=== PATIENT | female | born 1965 | race Caucasian/White ===

== ENCOUNTER 2024-03-23 13:02 | Outpatient (CLI) | payer MEDICARE, SELFPAY | END 2024-03-23 13:03 | disposition home or self-care (01) | LOC: LAB 13:04 | DX: E78.5 Hyperlipidemia, unspecified (principal); M25.511 Pain in right shoulder; M79.9 Soft tissue disorder, unspecified | CPT/HCPCS: 73030; 80053; 80061; 85025 ==

== ENCOUNTER → 2024-03-30 11:31 | Outpatient (BNVA) | payer MEDICARE, SELFPAY | PROVIDERS: Visit Provider Specialist | DX: M77.8 Other enthesopathies, not elsewhere classified (principal); M75.31 Calcific tendinitis of right shoulder | CPT/HCPCS: 20610; 73030; 99204 ==

== ENCOUNTER 2024-04-06 13:10 | Outpatient (CLI) | payer MEDICARE, SELFPAY ==
--- NOTE | 2024-04-06 13:30 | MM_ITS ---
WS: [id number] BILATERAL 3D TOMOSYNTHESIS DIGITAL SCREENING MAMMOGRAPHY WITH CAD CLINICAL INFORMATION: screening for breast cancer HISTORY: Screening mammogram. No current complaints. COMPARISON: None. TECHNIQUE: Bilateral CC and MLO views. FINDINGS: Scattered fibroglandular densities bilaterally. No suspicious focal mass, asymmetry, calcifications, or architectural distortion. No evidence of malignancy. A few incidental punctate calcifications. MM/MM scr tomosynthesis [id number] IMPRESSION: DENSITY: There are scattered areas of fibroglandular density. BI-RADS: 2 - Benign. FOLLOW UP: 1 Year Follow-up Recommend return to annual screening mammography.
--- NOTE | 2024-04-06 14:00 | XR_ITS ---
WS: [id number] DEXA (DUAL ENERGY X-RAY ABSORPTIOMETRY) Bone mineral density was performed using a Genome machine. HISTORY: screening COMPARISON: None available. Lumbar spine BMD (L1-L4): 1.001 g/cm2 T score: -1.5 Z score: -0.7 Total hip BMD: Left: 0.810 g/cm2. T score: -1.6 Z score: -1.0 Right: 0.804 g/cm2. T score: -1.6 Z score: -1.0 10 year probability of a major osteoporotic fracture is 16.0%. XR/XR DEXA axial skeleton* [id number] IMPRESSION: OSTEOPENIA based upon the WHO classification for females.
== END 2024-04-06 13:11 | disposition home or self-care (01) ==
LOC: RAD 13:10
DX: Z12.31 Encounter for screening mammogram for malignant neoplasm of breast (principal); Z13.820 Encounter for screening for osteoporosis; M85.80 Other specified disorders of bone density and structure, unspecified site; E34.9 Endocrine disorder, unspecified; M06.9 Rheumatoid arthritis, unspecified; R92.323 Mammographic fibroglandular density, bilateral breasts; R92.1 Mammographic calcification found on diagnostic imaging of breast
CPT/HCPCS: 77063; 77067; 77080

== ENCOUNTER 2024-04-29 13:31 | Outpatient (CLI) | payer MEDICARE, SELFPAY ==
[2024-04-29 14:08] LABS: Erythrocyte Sedimentation Rate 6 mm/hr (0-15)
[2024-05-02 11:19] LABS: COMPLEMENT COMPONENT C3C 116 mg/dL (83-193); COMPLEMENT COMPONENT C4C 18 mg/dL (15-57)
[2024-05-02 12:04] LABS: Cyclic Citrullinated Peptide <16 UNITS
[2024-05-02 14:38] LABS: THYROID PEROXIDASE ANTIBODIES <1 IU/mL (<9)
[2024-05-02 15:00] LABS: COMPLEMENT, TOTAL (CH50) 55 U/mL (31-60)
[2024-05-02 15:15] LABS: ANA SCREEN, IFA NEGATIVE (NEGATIVE)
[2024-05-02 17:15] LABS: CENTROMERE B ANTIBODY <1.0 NEG AI (<1.0 NEG); JO-1 ANTIBODY <1.0 NEG AI (<1.0 NEG); RNP ANTIBODY <1.0 NEG AI (<1.0 NEG); SCL-70 ANTIBODY <1.0 NEG AI (<1.0 NEG); SJOGREN'S ANTIBODY (SS-A) <1.0 NEG AI (<1.0 NEG); SM ANTIBODY <1.0 NEG AI (<1.0 NEG); SS-B <1.0 NEG AI (<1.0 NEG)
== END 2024-04-29 13:32 | disposition home or self-care (01) ==
LOC: LAB 13:33
DX: M06.9 Rheumatoid arthritis, unspecified (principal)
CPT/HCPCS: 36415; 85651; 86140; 86160; 86162; 86200; 86235; 86255; 86376

== ENCOUNTER → 2024-05-31 08:43 | Outpatient (BNVA) | payer MEDICARE, SELFPAY | PROVIDERS: Visit Provider Internal Medicine Rheumatology | DX: Z79.899 Other long term (current) drug therapy (principal); M06.041 Rheumatoid arthritis without rheumatoid factor, right hand; M06.042 Rheumatoid arthritis without rheumatoid factor, left hand; Z71.85 Encounter for immunization safety counseling | CPT/HCPCS: 99214 ==

== ENCOUNTER → 2024-08-17 10:05 | Outpatient (BNVA) | payer MEDICARE, SELFPAY | PROVIDERS: PCP Family Medicine; Visit Provider Specialist | DX: M77.8 Other enthesopathies, not elsewhere classified (principal); S42.35 Comminuted fracture of shaft of humerus; M25.511 Pain in right shoulder; G89.29 Other chronic pain; X58.XXXS Exposure to other specified factors, sequela | CPT/HCPCS: 73030; 99214 ==

== ENCOUNTER 2024-08-29 07:06 | Outpatient (CLI) | payer MEDICARE, SELFPAY ==
--- NOTE | 2024-08-29 07:15 | MR_ITS ---
WS: [id number] MRI RIGHT SHOULDER HISTORY: right shoulder pain COMPARISON: Radiograph 08/17/2024 TECHNIQUE: Multiplanar sequences of the shoulder joint are submitted. Mild AC joint arthropathy. Small amount of fluid in the subacromial and subdeltoid bursa. Biceps tendon in normal position. No os acromion. Subchondral cystic changes in the greater tuberosity. Slightly high riding humeral head. Moderate size insertion site tear of the supraspinatus with interstitial extension of the tear. Mild tendinopathy in the distal subscapularis tendon with narrowing of the coracohumeral interval. Infraspinatus and teres minor are intact. No muscle atrophy. No evidence for adhesive capsulitis. No significant joint effusion. Calcific tendinitis noted on the radiograph versus chondrocalcinosis is not identified by CT. No labral tear. MR/MR shoulder RT wo con* [id number] IMPRESSION: 1. Moderate-sized insertion site of the supraspinatus with interstitial extens ion. No retraction of the tendon or muscle atrophy. 2. Mild AC joint arthropathy. 3. Subchondral cystic changes in the greater tuberosity. 4. Mild distal subscapularis tendinopathy with narrowing of the coracohumeral interval.
--- NOTE | 2024-08-29 08:45 | NM_ITS ---
WS: [email or web address] THREE-PHASE BONE SCAN HISTORY: left shoulder pain COMPARISON: Radiograph 08/17/2024 Patient is is injected with 27.5 mCi Tc99m HDP intravenously. Immediate angiographic phase imaging is performed over the area of concern. Static blood pool imaging also performed. Two-hour whole-body scintigrams performed in anterior and posterior projections. Additional large field of view imaging sub mitted as necessary. Normal angiographic and blood pool phase imaging of the LEFT shoulder. Patient is status post ORIF LEFT humeral fracture involving the proximal third. Incomplete union along the oblique fracture site demonstrates moderate increased uptake. There is also some milder uptake at the tip of the distal plate. Mild bilateral degenerative changes at the shoulder joints. No rib or spine abnormality. Osteoarthritis at the ankles and feet and knees. Normal soft tissue and renal uptake. NM/NM bone 3 phase [id number] IMPRESSION: 1. Focal moderate uptake proximal LEFT humerus at the site of nonunion. Radiog raphically there is no callus developing along the fracture. 2. There is additional more mild uptake involving the distal most LEFT humeral plate. 3. Osteoarthritis at the ankles, feet, knees and shoulders.
== END 2024-08-29 07:07 | disposition home or self-care (01) ==
LOC: RAD 07:08
PROVIDERS: PCP Family Medicine; Visit Provider Specialist
DX: S42.302K Unspecified fracture of shaft of humerus, left arm, subsequent encounter for fracture with nonunion (principal); M19.012 Primary osteoarthritis, left shoulder; M19.011 Primary osteoarthritis, right shoulder; M19.072 Primary osteoarthritis, left ankle and foot; Z98.890 Other specified postprocedural states; M19.071 Primary osteoarthritis, right ankle and foot; M17.0 Bilateral primary osteoarthritis of knee; R93.6 Abnormal findings on diagnostic imaging of limbs; M75.101 Unspecified rotator cuff tear or rupture of right shoulder, not specified as traumatic; X58.XXXD Exposure to other specified factors, subsequent encounter
CPT/HCPCS: 73221; 78315; A9561

== ENCOUNTER → 2024-09-05 13:21 | Outpatient (BNVA) | payer MEDICARE, SELFPAY | PROVIDERS: PCP Family Medicine; Visit Provider Internal Medicine Rheumatology | DX: S42.35 Comminuted fracture of shaft of humerus (principal); M25.511 Pain in right shoulder; M25.512 Pain in left shoulder; G89.29 Other chronic pain; M06.041 Rheumatoid arthritis without rheumatoid factor, right hand; M06.042 Rheumatoid arthritis without rheumatoid factor, left hand; Z71.85 Encounter for immunization safety counseling; Z79.899 Other long term (current) drug therapy; X58.XXXS Exposure to other specified factors, sequela | CPT/HCPCS: 36415; 72040; 72100; 80076; 82565; 85025; 85651; 86140; 99214 ==

== ENCOUNTER 2024-09-14 07:48 | Outpatient (CLI) | payer MEDICARE, SELFPAY ==
--- NOTE | 2024-09-14 07:54 | MR_ITS ---
WS: [email or web address] MRI CERVICAL SPINE NONCONTRAST HISTORY: CERVICALGIA COMPARISON: Cervical spine 09/05/2024 Technique: Multiplanar, multisequence noncontrast imaging of the cervical spine. Straightening of the normal cervical lordosis with slight reversal at C3-4. Mild RIGHT curvature cervical spine. Hypertrophic osteophytes and disc space narrowing throughout the cervical spine, most significant at C3-C6. Signal within the cervical cord is normal. Visualized posterior fossa is unremarkable. Craniocervical junction, C1 and C2 relationship, odontoid process and soft tissues are normal. C2-C3: Mild facet arthritis. C3-C4: Annular disc bulging with a small central disc protrusion. Mild osteophytic ridging and facet arthritis. Mild central and foraminal stenosis. C4-C5: Diffuse annular disc bulging with osteophytic ridging. Facet joint arthritis. Very mild central stenosis. C5-C6: Mild annular disc bulge with a central disc protrusion, osteophytic ridging and facet arthritis. Mild central and foraminal stenosis. C6-C7: Mild annular disc bulging. No stenosis. C7-T1: Normal. Paraspinal soft tissue are normal. T2 hemangioma. MR/MR cervical spin wo con* [id number] IMPRESSION: 1. No high-grade central or foraminal stenosis. 2. Degenerative disc disease and hypertrophic vertebral body osteophytes. 3. Slight reversal of the normal cervical lordosis at C3-4. 4. C3-4: Mild central and foraminal stenosis. 5. Mild central stenosis at C4-5. 6. Mild central foraminal stenosis at C5-6.
--- NOTE | 2024-09-14 08:00 | CTR_ITS ---
PROCEDURE INFORMATION: Exam: CT Abdomen And Pelvis Without Contrast Exam date and time: 09/14/2024 8:12 AM Age: 59 years old Clinical indication: Condition or disease; Other: Adrenal tumor; Prior surgery; Surgery date: 6+ months; Surgery type: Partial hyst, gb, gastric sleeve; Additional info: F/u adrenal tumors TECHNIQUE: Imaging protocol: Computed tomography of the abdomen and pelvis without contrast. Radiation optimization: All CT scans at this facility use at least one of these dose optimization techniques: automated exposure control; mA and/or kV adjustment per patient size (includes targeted exams where dose is matched to clinical indication); or iterative reconstruction. COMPARISON: CR XR lumbar spine 2-3V* [id number] 09/05/2024 2:42 PM RADIATION DOSE METRICS: Total DLP (mGy-cm): 570.57 FINDINGS: Lungs: Visualized lung bases are clear. Liver: Normal appearance of the liver. Gallbladder and biliary ducts: The patient is status post cholecystectomy. Bile duct is prominent measuring approximately 1.1 cm in diameter. No CT apparent ductal stone. Pancreas: Normal appearance of the pancreas. No ductal dilation. Spleen: Normal appearance of the spleen. Adrenal glands: Bilateral adrenal prominence with multiple nodular areas. The largest is within the left adrenal inferiorly measuring approximately 2.2 cm in size. All the nodules low density measuring approximately 15 Hounsfield units or less suggestive but not definitive for incidental adenomas. Kidneys and ureters: There is a small exophytic lesion on the left kidney measuring approximately 0.8 cm without simple fluid density to suggest a cyst. This is indeterminate on this noncontrast exam. Kidneys otherwise are unremarkable. Stomach and bowel: Postsurgical changes to the stomach. Normal caliber small and large without obstruction. Mild colonic stool. Appendix: The appendix is identified and normal in appearance. No evidence of appendicitis. Intraperitoneal space: Unremarkable. No free air. No significant fluid collection. Vasculature: There is mild calcific atherosclerotic disease of the abdominal aorta. No evidence of an aneurysm. Pelvic calcifications, likely representing incidental phleboliths. Lymph nodes: Unremarkable. No enlarged lymph nodes. Urinary bladder: The bladder is mostly decompressed and not well evaluated. Reproductive: Patient is status post hysterectomy. Bones/joints: Mild scattered degenerative changes of the visualized spine. No aggressive osseous lesion or fracture is seen. Soft tissues: The visualized superficial soft tissues have a normal appearance. CT/CT abdomen pelvis wo con [id number] IMPRESSION: 1. Bilateral adrenal nodularity. Largest nodule in the left adrenal gland measuring 2.2 cm with indeterminate Hounsfield unit measurement of approximately 15 on noncontrast imaging. Finding suggestive of adenomas although indeterminate. Recommend nonemergent adrenal CT or MRI for more definitive evaluation. 2. There is also an indeterminate sub cm exophytic nodule on the left kidney which is indeterminate. This can also be further evaluated on above-mentioned adrenal imaging.
== END 2024-09-14 07:49 | disposition home or self-care (01) ==
LOC: RAD 07:51
PROVIDERS: PCP Family Medicine; Visit Provider Family Medicine
DX: D49.7 Neoplasm of unspecified behavior of endocrine glands and other parts of nervous system (principal); M48.02 Spinal stenosis, cervical region; M25.78 Osteophyte, vertebrae; M47.892 Other spondylosis, cervical region; M50.31 Other cervical disc degeneration, high cervical region; M50.21 Other cervical disc displacement, high cervical region; M50.321 Other cervical disc degeneration at C4-C5 level; M50.322 Other cervical disc degeneration at C5-C6 level; M50.222 Other cervical disc displacement at C5-C6 level; M50.323 Other cervical disc degeneration at C6-C7 level; D18.09 Hemangioma of other sites; E27.8 Other specified disorders of adrenal gland; N28.89 Other specified disorders of kidney and ureter; Z90.49 Acquired absence of other specified parts of digestive tract; Z98.890 Other specified postprocedural states; R93.89 Abnormal findings on diagnostic imaging of other specified body structures; I70.0 Atherosclerosis of aorta; M47.9 Spondylosis, unspecified
CPT/HCPCS: 72141; 74176

== ENCOUNTER 2024-09-19 16:01 | Outpatient (CLI) | payer MEDICARE, SELFPAY ==
--- NOTE | 2024-09-19 16:30 | US_ITS ---
WS: [email or web address] RENAL ULTRASOUND HISTORY: Left kidney exophytic lesion on CT COMPARISON: None available. TECHNIQUE: 2-D and color Doppler imaging of the kidney submitted. Right kidney: 9.9 cm x 4.8 cm x 4.5 cm. Cortex: 1.0 cm Normal echogenicity with no hydronephrosis or mass. Left kidney: 9.8 cm x 4.4 cm x 4.1 cm. Cortex: 1.2 cm Normal echogenicity with no hydronephrosis or mass. Aorta: Normal. Urinary Bladder: Nondistended. US/US renal BI* [id number] IMPRESSION: 1. Normal renal ultrasound. No hydronephrosis or mass. Recently described exop hytic mass from the LEFT kidney is not identified by ultrasound due to its smal l size. Consider renal mass CT or MRI protocol with and without contrast. 2. No hydronephrosis.
== END 2024-09-19 16:02 | disposition home or self-care (01) ==
PROVIDERS: PCP Family Medicine; Visit Provider Family Medicine
DX: N28.1 Cyst of kidney, acquired (principal)
CPT/HCPCS: 76770

== ENCOUNTER 2024-10-19 09:49 | Outpatient (CLI) | payer MEDICARE, SELFPAY ==
--- NOTE | 2024-10-19 09:55 | CT_ITS ---
WS: [id number] CT LEFT HUMERUS, NONCONTRAST HISTORY: UNSPECIFIED FX OF SHAFT OF HUMERUS Technique: All CT scans at [facility] use at least one of these dose optimization techniques: automated exposure control; mA and/or kV adjustment per patient size (includes targeted exams where dose is matched to clinical indication); or iterative reconstruction. DLP: 716.13 mGy.cm COMPARISON: Radiograph 10/19/2024 Long plate and screw fixation across the proximal humeral fracture. Nonunion involving portions of the fracture. Mild separation of nonunion by 3.3 mm. No lucency is identified surrounding the screws. No displacement of the plate. Visualized soft tissues and additional osseous structures are normal. CT/CT humerus LT wo con* [id number] IMPRESSION: 1. Status post plate and screw fixation of a proximal LEFT humeral fracture wi th partial nonunion. 2. No lucency surrounding the screws or displacement.
== END 2024-10-19 09:50 | disposition home or self-care (01) ==
LOC: RAD 09:51
PROVIDERS: PCP Family Medicine; Visit Provider Orthopaedic Surgery
DX: S42.302K Unspecified fracture of shaft of humerus, left arm, subsequent encounter for fracture with nonunion (principal); X58.XXXD Exposure to other specified factors, subsequent encounter; M96.89 Other intraoperative and postprocedural complications and disorders of the musculoskeletal system
CPT/HCPCS: 73200

== ENCOUNTER → 2024-12-26 13:45 | Outpatient (BNVA) | payer MEDICARE, SELFPAY | PROVIDERS: PCP Family Medicine; Visit Provider Internal Medicine Rheumatology | DX: S42.35 Comminuted fracture of shaft of humerus (principal); M25.511 Pain in right shoulder; M25.512 Pain in left shoulder; G89.29 Other chronic pain; M06.041 Rheumatoid arthritis without rheumatoid factor, right hand; M06.042 Rheumatoid arthritis without rheumatoid factor, left hand; Z79.899 Other long term (current) drug therapy; Z71.85 Encounter for immunization safety counseling; R06.02 Shortness of breath; M06.9 Rheumatoid arthritis, unspecified | CPT/HCPCS: 36415; 80076; 82565; 83880; 85025; 85651; 86140; 86480; 86704; 86803; 87340; 99214 ==

== ENCOUNTER 2025-02-08 17:43 | Inpatient (IN) | payer MEDICARE, SELFPAY ==
--- OUTSIDE RECORDS SUMMARY | 2024-03-15 08:30 | XMS_ITS ---
Author Organization [facility] Address [address] [facility] [address] [place] [address] Care Team Providers Care Press Operator Printing Name Role Phone Amos Callahan Primary Care Provider Sudhakar Parr [phone] REASON FOR VISIT 4 month f/u smoking cessation Medications Medication SIG (Take, Route, Frequency, Duration) Notes Start Date End Date Status traMADol HCl 50 MG Tablet TAKE 1 TABLET BY MOUTH EVERY 8 HOURS NEEDED FOR 7 DAYS; Duration: 7 03/08/2024 Active traZODone HCl 150 MG Tablet Oral; Duration: 30 Days Not-Taking valACYclovir HCl 500 MG Tablet Take 1 tablet by mouth once daily; Duration: 90 Active Pantoprazole Sodium 40 MG Tablet Delayed Release 1 tablet Orally Once a day Not-Taking Albuterol Sulfate HFA 108 (90 Base) MCG/ACT Aerosol Solution 2 puff as needed Inhalation every 4 to 6 hours as needed for shortness of breath 12/25/2023 Active predniSONE 5 MG Tablet 1 tablet Oral Once a day; Duration: 30 days Active Promethazine-DM 6.25-15 MG/5ML Syrup 5 ml as needed Orally every 8 hours as needed for cough 12/25/2023 Not-Taking Omeprazole 20 MG Capsule Delayed Release 1 capsule 30 minutes before morning meal Oral Once a day; Duration: 90 days Patient new to provider controlled substance should come to us only Active predniSONE 50 MG Tablet 1 tablet in the morning Orally Once a day; Duration: 5 days 12/25/2023 Active Sertraline HCl 100 MG Tablet TAKE 1 TABLET BY MOUTH ONCE DAILY Orally Once a day; Duration: 90 days Patient new to provider controlled substance should come to us only Active Gabapentin 300 MG Capsule 1 capsule Oral three times a day; Duration: 90 days Active Methotrexate Sodium 2.5 MG Tablet 7 tablets Oral once week.; Duration: 7 days Active Diflucan 150 MG Tablet 1 tablet now and then 1 tablet in 48 hours Orally once a day 01/06/2024 Not-Taking Folic Acid 1 MG Tablet 1 tablet Orally Once a day; Duration: 90 days Active clonazePAM 1 MG Tablet Take 1 tablet by mouth twice daily as needed; Duration: 30 03/03/2024 Active Alendronate Sodium 70 MG Tablet 1 tablet 30 minutes before the first food, beverage or medicine of the day with plain water Orally once a week.; Duration: 84 days Active Atorvastatin Calcium 40 MG Tablet 1 tablet Oral Once a day; Duration: 90 days Active Augmentin 875-125 MG Tablet 1 tablet by mouth twice a day; Duration: 10 day(s) 12/25/2023 Not-Taking Encounters Encounter Location Date Provider Diagnosis [facility] [address] [facility] [address] [place], [place] [id number] 03/15/2024 Sudhakar Fair Plan Of Treatment No Information Progress Notes * Elaine RINALDIDOB:1965 (59 yo F)Acc No.[id number]:03/15/2024 UNLOCKED PROGRESS NOTE Progress Notes Patient: Elaine Boland Provider: CARLOS Zavaleta :1965 A ge:58 Y S ex:Female Date:03/15/2024 Address:[address] [place] [address], [id number] Pcp:Amos Callahan Subjective: * Chief Complaints: * 4 month f/u smoking cessation * Medications: T akingAlbuterol Sulfate HFA 108 (90 Base) MCG/ACT Aerosol Solution 2 puff as needed Inhalation every 4 to 6 hours as needed for shortness of breath Alendronate Sodium 70 MG Tablet 1 tablet 30 minutes before the first food, beverage or medicine of the day with plain water Orally once a week. Atorvastatin Calcium 40 MG Tablet 1 tablet Oral Once a day clonazePAM 1 MG Tablet Take 1 tablet by mouth twice daily as needed Folic Acid 1 MG Tablet 1 tablet Orally Once a day Gabapentin 300 MG Capsule 1 capsule Oral three times a day Methotrexate Sodium 2.5 MG Tablet 7 tablets Oral once week. Omeprazole 20 MG Capsule Delayed Release 1 capsule 30 minutes before morning meal Oral Once a day , Notes to Pharmacist: Patient new to provider controlled substance should come to us onlypredniSONE 50 MG Tablet 1 tablet in the morning Orally Once a day predniSONE 5 MG Tablet 1 tablet Oral Once a day Sertraline HCl 100 MG Tablet TAKE 1 TABLET BY MOUTH ONCE DAILY Orally Once a day , Notes to Pharmacist: Patient new to provider controlled substance should come to us onlytraMADol HCl 50 MG Tablet TAKE 1 TABLET BY MOUTH EVERY 8 HOURS NEEDED FOR 7 DAYS valACYclovir HCl 500 MG Tablet Take 1 tablet by mouth once daily Taking Albuterol Sulfate HFA 108 (90 Base) MCG/ACT Aerosol Solution 2 puff as needed Inhalation every 4 to 6 hours as needed for shortness of breath Taking Alendronate Sodium 70 MG Tablet 1 tablet 30 minutes before the first food, beverage or medicine of the day with plain water Orally once a week. Taking Atorvastatin Calcium 40 MG Tablet 1 tablet Oral Once a day Taking clonazePAM 1 MG Tablet Take 1 tablet by mouth twice daily as needed Taking Folic Acid 1 MG Tablet 1 tablet Orally Once a day Taking Gabapentin 300 MG Capsule 1 capsule Oral three times a day Taking Methotrexate Sodium 2.5 MG Tablet 7 tablets Oral once week. Taking Omeprazole 20 MG Capsule Delayed Release 1 capsule 30 minutes before morning meal Oral Once a day , Notes to Pharmacist: Patient new to provider controlled substance should come to us onlyTaking predniSONE 50 MG Tablet 1 tablet in the morning Orally Once a day Taking predniSONE 5 MG Tablet 1 tablet Oral Once a day Taking Sertraline HCl 100 MG Tablet TAKE 1 TABLET BY MOUTH ONCE DAILY Orally Once a day , Notes to Pharmacist: Patient new to provider controlled substance should come to us onlyTaking traMADol HCl 50 MG Tablet TAKE 1 TABLET BY MOUTH EVERY 8 HOURS NEEDED FOR 7 DAYS Taking valACYclovir HCl 500 MG Tablet Take 1 tablet by mouth once daily Not-TakingAugmentin 875-125 MG Tablet 1 tablet by mouth twice a day Diflucan 150 MG Tablet 1 tablet now and then 1 tablet in 48 hours Orally once a day Pantoprazole Sodium 40 MG Tablet Delayed Release 1 tablet Orally Once a day Promethazine-DM 6.25-15 MG/5ML Syrup 5 ml as needed Orally every 8 hours as needed for cough traZODone HCl 150 MG Tablet Oral Not-Taking Augmentin 875-125 MG Tablet 1 tablet by mouth twice a day Not-Taking Diflucan 150 MG Tablet 1 tablet now and then 1 tablet in 48 hours Orally once a day Not-Taking Pantoprazole Sodium 40 MG Tablet Delayed Release 1 tablet Orally Once a day Not-Taking Promethazine-DM 6.25-15 MG/5ML Syrup 5 ml as needed Orally every 8 hours as needed for cough Not-Taking traZODone HCl 150 MG Tablet Oral * Electronic signature of Just CARLOS Arnett on 02/08/2025 at 06:05 PM CDT Sign off status: Pending * Provider: CARLOS Zavaleta Date: 03/15/2024 Generated for Leti frances/Jailyn/Roxann on: 02/08/2025 06:05 PM CDT
--- OUTSIDE RECORDS SUMMARY | 2024-09-30 06:00 | XMS_ITS ---
Author Organization [facility] Arabella beckman Billing Info Address [address] [place] [address] Care Team Providers Care Agency Trainer Name Role Phone Mariangel Sosa Primary Care Provider JAVI Bean Unavailable [phone] LYNDON INIGUEZ Unavailable [phone] REASON FOR VISIT Med. Records Encounters Encounter Location Date Provider Diagnosis [id number] [address] [address] [place], [place] [id number] 09/30/2024 LYNDON INIGUEZ Plan Of Treatment No Information Progress Notes * TATIANA DARBY MDOB: [birth year] (59 yo F)Acc No.[id number]:09/30/2024 Patient: TATIANA CAST :1965 A ge:59 Y S ex:Female Address:[address] [place] [address], [id number] * true * Date: Generated for Printi ng/Faxing/eTransmitting on: 0 02/08/2025 06:04 PM CDT
--- OUTSIDE RECORDS SUMMARY | 2024-10-11 23:59 | XMS_ITS | Continuity of Care Document ---
Author Name [facility] Address [address] [place] [address] Organization [facility] Care Team Providers Care Wood Sash And Frame Carpenter Name Role Phone [facility] Unavailable Unavailable Problems Problem Status Onset Date Problem Type Date of Resolution Comme nts Source Fracture of shaft of humerus (disorder) 09/27/2024 Diagnosis Pain (finding) 09/21/2024 Diagnosis Allergies, Adverse Reactions, Alerts Substance Category Reaction Severity Reaction type Status Date Reported Comments Source scopolamine Assertion Nausea and vomiting Drug allergy Active -[facility] Robaxin Assertion Drug allergy Active [facility] Consultation Notes Results Value Date Source Op/Procedure Note Visit Type: Procedur e Attending Physician: Jerome Young MD Procedure Performed: Right ultrasound guided acromioclavicular joint injection Procedure Performed By: Attending Physician - Jerome Young MD Description of Procedure: After informed consent was obtained, the patient stayed sitting upright. I utilized the linear ultrasound probe to visualize the right AC joint. I decided to pursue a short axis out of plane injection. I marked the probe position. Then, sterile gloves were donned and the rest procedure was performed in sterile fashion. I evaristo up 1 cc of solution in a 1 cc syringe (1/2 cc 0.5% ropivacaine and 1/2 cc 40 mg Kenalog, or 20mg of Kenalog. A 25-gauge 1.5 inch needle was attached to the syringe. Then, under ultrasound guidance, I was able to visualize the needle in the joint, with injection showing fluid within the AC joint as I was injecting. These images were saved on the [employer] ultrasound machine. The patient tolerated procedure well without complication. Pre Procedure Diagnosis: Right AC joint osteoarthritis Post Procedure Diagnosis: Right AC joint osteoarthritis Informed Consent Obtained: Yes, Risks including local bleeding and infection discussed. Benefits including pain relief discussed Prep and Technique: Skin prepped in sterile manner with chlora-prep, sterile US probe cover, sterile US gel, and sterile gloves Anesthesia: Local: Ethyl chloride spray Position of Patient: Seated up right Condition: Good Procedure Tolerated: Well Complications : None Pre Procedure Pain: 7/10 Post Procedure Pain: 7/10 Additional Information: Patient referred from Dr. Cornel Alonso for the above procedure. Will follow up with Dr. Alonso in future This document was scribed for Dr. Jerome Young by Gary Toro, on 09/21/24 15:29:31 I have reviewed the scribe's note as documented in my presence and it accurately reflects my words and actions for this date of service. 09/21/2024 Orthopaedic Clinic Note Visit Date: 07/2024 ID: 59 Years old Female Chief Complaint: Bilateral shoulder pain Date of Last Visit: N/A Current treatment modalities: Anti-inflammatory medications, 2 prior right shoulder injections Clinical history: Obtained by: Patient. Patient comes in today for evaluation of bilateral shoulder pain. She states that her pain is currently 5 out of 10, worse on the right side and worse over the anterolateral and superior shoulders at night, waking her up from sleep. She has a history of a left proximal humerus fracture which was reportedly originally fixed with intramedullary nailing back in 2018, complicated by a reported nonunion for which she underwent nonunion surgery. She had a recent bone scan done by her primary care physician, and was referred here for further recommendations and management. With respect to her right shoulder, she had an MRI that was also obtained by her primary care provider suggestive of possible rotator cuff tear. She has not had any previous right shoulder surgery nor done therapy for her right side. Reportedly also had blood work about 4 months ago which was normal. No further issues. Denies fever, chills, chest pain, shortness of breath, otherwise healthy with no pertinent past medical history Hand Dominance: Right Occupation: Unemployed General physical exam: General appearance: The patient appears as stated age, well, comfortable and in no apparent distress. Most Recent BMI BMI: 33.8 kg/m2 (09/21/24) Disposition: pleasant Vital Signs: Pain Score 5 (09/21/24 14:07) Cardiovascular: Normal peripheral pulse and normal rate Respiratory: Non-labored breathing. Talks in full sentences without shortness of breath. Focused exam: With respect to her left shoulder, she has a well-healed incision, 4-5 strength with forward elevation and 4-5 strength with abduction, forward elevation is to about 120 degrees passively, external rotation is to about 35 degrees with the arm at the side, and abduction is to about 90 degrees; she is nontender throughout her entire left arm, though does report some diminished sensation along the ulnar aspect of her left hand With respect to her right shoulder, she has forward elevation to 120 degrees, external rotation to 45 degrees with the arm at the side, external rotation to 20 degrees with the arm at 90 degrees, internal rotation to her mid lumbar spine, 5 out of 5 strength with external rotation, internal rotation, as well as abduction, with abduction to 80 degrees; she is mildly tender over the biceps long head in the groove, though also has tenderness to palpation over the AC joint; she has a positive Neer's, positive Hawking's, negative belly off, negative liftoff, negative bearhug, positive Nicole, positive [place]'s Imaging / diagnostic studies: My own interpretation: Radiographs of the left humerus were independently read by myself. These demonstrate implants without radiographic complication, and possible bridging callus posterior laterally. Radiographs of the right shoulder independently read by myself and demonstrate right superior rotator cuff calcific tendinitis without obvious fracture or radiographic complication otherwise. MRI of the right shoulder is also independently reviewed which is negative for obvious rotator cuff tear. Impression/Plan: 1. 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 Right shoulder pain with rotator cuff tendinitis and possible AC joint arthropathy With respect to the left arm, we discussed that she does have some evidence of bridging callus that is nontender on exam. We would like to order a CT scan of her left humerus to further evaluate for callus formation. If she has bridging callus on CT scan, it is unlikely that she would require any further workup from a fracture nonunion standpoint. Should she have no callus formation, we would like to discuss further next steps in management. For her right shoulder, we discussed that her MRI and physical exam are reassuring from a rotator cuff tear standpoint. She may have some component of AC joint arthropathy with rotator cuff tendinitis. We would like to proceed with ultrasound-guided AC joint injection. We will refer her to our nonoperative sports medicine colleagues to see if we get that done, and we will have her get a CT scan closer to where she lives. She was instructed to reach back out to the office with the results of her CT scan and following her right AC joint injection. All questions were answered, patient is understanding and agreeable with this plan. Follow-up: After right shoulder AC joint ultrasound-guided injection as well as after CT scan the left humerus has been obtained Patient seen and assessed with attending surgeon Dr. Alonso; Clinical note dictated by Dr. Moore on 09/21/24 14:59:53 Attestation by Gavin ABDI, Kayode Urena on September 22, 2024 09:10 I performed a history and examination of the patient and discussed the patient s management with the resident. I reviewed the note by the resident and agree with those documented findings and plan of care. 09/21/2024 Vital Signs Vital Sign Value Date Comments Source BSA Jose C 1.78 09/21/2024 20:26:00 [facility] Height (cm) 154 cm 09/21/2024 20:26:00 [facility] Temperature (Celsius) 36.9 [place] 09/21/2024 20:26:00 [facility] Weight (kg) 80.1 kg 09/21/2024 20:26:00 [facility] BMI 33.8 kg/m2 09/21/2024 20:26:00 [facility] BMI 33.8 kg/m2 09/21/2024 19:07:00 [facility] BSA Jose C 1.78 09/21/2024 19:07:00 [facility] Height (cm) 154 cm 09/21/2024 19:07:00 [facility] Weight (kg) 80.1 kg 09/21/2024 19:07:00 [facility] Encounters Location Location Details Encounter Type Encounter Number Reason For Visit Attending Provider ADM Date DC Date Status Source [facility] [id number] Kayode Alonso 09/21 18:58 :27 09/22 04:59 :59 [facility] [id number] Jerome Young 09/21 20:22 :45 09/22 04:59 :59 [facility] [place] [facility] Visit [id number] 09/27 20:22 :16 09/28 04:59 :59 [facility] [place] [facility] El[facility] Between Visit [id number] 10/05 13:44 :21 10/06 04:59 :59 [facility] [place] [facility] El[facility] Between Visit [id number] 10/05 13:56 :25 10/06 04:59 :59 [facility] [place] [facility] Between Visit [id number] 10/05 13:57 :45 10/06 04:59 :59 [facility] [place] [facility] Between Visit [id number] 10/06 14:31 :09 10/07 04:59 :59 [facility] [place] [facility] Visit [id number] 10/11 14:08 :18 10/12 04:59 :59 [facility] [place] Social History Social History Date Source No data available for this section 10/12/2024 [facility] No data available for this section 10/07/2024 [facility] No data available for this section 10/06/2024 [facility] No data available for this section 09/28/2024 [facility] No data available for this section 09/22/2024 [facility]
--- OUTSIDE RECORDS SUMMARY | 2025-02-07 09:45 | XMS_ITS | Encounter Summary ---
Author Organization [facility] Address [address] [place] [address] Care Team Providers Care Shoelace Tipping Machine Operator Name Role Phone Unavailable Primary Care Provider Unavailabl e Reason for Visit * Eval and Treat (Routine) - Closed Specialty Diagnoses / Procedures Referred By Artur t Referred To Contact Surgery / General Surgery Diagnoses Bariatric surgery status Gastro-esophageal reflux disease without esophagitis Nicotine dependence, cigarettes, uncomplicated Pain in unspecified joint Neoplasm of unspecified behavior of endocrine glands and other parts of nervous system [place] [address] [place] [address] Phone: tel: fax: Don Soriano MD [address] [place] [id number] Phone: tel: fax: Referral ID Status Reason Start Date Expiration Date Visits Re quested Visits Authorized [id number] Closed 09/26/2024 10/27/2025 1 1 Encounter Details Date Type Department Care Team (Late st Contact Info) Description 02/07/2025 9:45 AM CDT Telephone Check Up [facility] Gen Spec Surg [address] [address] Don Soriano MD [address] [place] [id number] Social History Tobacco Use Types Packs/Day Years Used Date Smoking Tobacco: Former Cigarettes Smokeless Tobacco: Never Comments Unknown Sex and Gender Information Value Date Recorded Sex Assigned at Not on file Legal Sex Female 8:43 AM CDT Gender Identity Not on file Sexual Orientation Not on file documented as of this encounter Progress Notes * Don Soriano MD - 02/08/2025 11:09 AM CDT Patient's identity confirmed yes Patient gave verbal consent to have these services billed to their insurance and expressed understanding that co-insurance and deductible may apply: yes This encounter was completed via two-way synchronous audio only communication. Video technology available to provider, but patient not capable of, or doesn't consent to, use of video. Time spent in discussion with patient: 15 minutes. On the day of this visit I spent 15 minutes providing care to this patient including Preparing to see the patient, Obtaining and/or reviewing separately obtained history, Counseling and educating thepatient/family/caregiver, Documenting clinical information in the medical record, Independently inte rpreting results and communicating results to the patient/family/caregiver (not separately reported), and Care coordination (not separately reported) Patient: Elaine Rinaldi / 59 y.o. / female : 1965 n Clinic Note: Date:02/08/2025 Elaine Rinaldi is a 59 y.o. female who presents back today via phone conversation for follow-up of testing that was done. The patient has had a previous sleeve gastrectomy done and has developed significant gastroesophageal reflux disease. We had a complete workup. We reviewed the workup with the patient we went over the testing in detail. Will plan on proceeding with a laparoscopic conversion of sleeve gastrectomy to Tulio-en-Y gastric bypass. Patient will need to go undergo some of the programmatic education. Will make arrangements for this. Will see the patient back for scheduling following completion. EGD: Findings: The Z-line was found 34 cm from the incisors. LA Grade C (one or more mucosal breaks continuous between tops of 2 or more mucosal folds, less than 75% circumference) esophagitis was found. The YA capsule with delivery system was introduced through the mouth and advanced into the esophagus, such that the pH capsule was positioned 28 cm from the incisors, which was 6 cm proximal to the GE junction. The pH capsule was then deployed and attached to the esophageal mucosa. The delivery system was then withdrawn. Endoscopy was utilized for probe placement and diagnostic evaluation. Erythematous mucosa was found in the gastric antrum. Biopsies were taken with a cold forceps for Helicobacter pylori testing. Biopsies were taken with a cold forceps for histology. Verification of patient identification for the specimen was done. Estimated blood loss was minimal. The examined duodenum was normal. Evidence of a sleeve gastrectomy was found in the stomach. Impression: - Z-line, 34 cm from the incisors. - LA Grade C esophagitis. - Erythematous mucosa in the antrum. Biopsied. - Normal examined duodenum. - A sleeve gastrectomy was found. - The YA capsule was deployed. Recommendation: - Discharge patient to home. - Patient has a contact number available for emergencies. The signs and symptoms of potential delayed complications were discussed with the patient. Return to normal activities tomorrow. Written discharge instructions were provided to the patient. - Resume previous diet. - Continue present medications. - Await pathology results. - Return to GI clinic PRN. - Return to referring physician after studies are complete. - After YA study is turned in and completed would resume PPI BID Dejon Romero MD Manometry: Impression: 1. Short LES length 2. Low mean resting LES pressure 3. Normal LES relaxation 4. Sliding hiatus hernia was detected. Manometric size, approximately 3-4 cm 5. Normal bolus clearance on impedance evaluation 6. [place] 4.0 Motility Classification- Normal Esophageal Body Function in the context of previous sleeve gastrectomy Comment: No apparent manometric manifestations of chronic opioid use is observed. Manometry images and report reviewed. Agree with impression of normal esophageal motility. Patient does have moderate-sized hernia. Vu Rodriguez DO Referring Provider: Don Soriano MD Primary Care Provider: No primary care provider on file. Ya study: Ya study 48 hour telemetry pH study was performed in the usual fashion with the patient off acid suppressionper protocol. There is a satisfactory baseline and no significant signal loss. On day 1 there were 52 refluxes, 7 long refluxes, 13.2 % of time pH<4 and DeMeester score of 45.2. On day 2 there were 110 refluxes, 5 long refluxes, 16.4 % of time pH<4 and DeMeester score of 60.7. On day 1 there was a positive symptom correlation for chest pain and regurgitation by SI and SAP On day 2 there was a positive symptom correlation for chest pain and regurgitation by SI and chest pain, regurgitation, and heartburn by SAP Bipositional reflux was identified Impression: This study is Positive for abnormal distal esophageal acid exposure. Bipositional reflux was present. Positive symptom correlations were observed. Referring Provider: Don Soriano MD Primary Care Provider: No primary care provider on file. This documentation was created by [employer] mat linker software (known for inherent mat linker error) using [employer]. Effort has been done to assure accuracy of mat linker. Any obvious errors or omissions should be clarified with the author of the document. Signed: 2 Don Soriano MD 02/08/2025, 11:10 AM documented in this encounter Plan of Treatment Not on file documented as of this encounter Visit Diagnoses Not on filedocumented in this encounter
[2025-02-08 17:52] VITALS: BP 104/67; PULSE 92; RESP 16; O2SAT 95
--- OUTSIDE RECORDS SUMMARY | 2025-02-08 18:05 | XMS_ITS | Encounter Summary ---
Author Organization [facility] Address [address] [place] [address] Care Team Providers Care Armored Vehicle Officer Name Role Phone Unavailable Primary Care Provider Unavailabl e Reason for Visit * Reason Onset Date Comments Dr. Soriano pt 01/05/2025 Encounter Details Date Type Department Care Team (Late st Contact Info) Description 01/05/2025 Telephone [facility] Gen Spec Surg [address] [address] Don Soriano MD [address] [place] [phone] Dr[address] Soriano pt Social History Tobacco Use Types Packs/Day Years Used Date Smoking Tobacco: Former Cigarettes Smokeless Tobacco: Never Comments Unknown Sex and Gender Information Value Date Recorded Sex Assigned at Not on file Legal Sex Female 8:43 AM CDT Gender Identity Not on file Sexual Orientation Not on file documented as of this encounter Miscellaneous Notes * Telephone Encounter - Izabel Larose CMA - 01/05/2025 3:29 PM CDT Patient called in regards to a manometry study that was scheduled for 01/30 and was wondering if there were any cancellations so she could possibly get seen sooner. I am unsure about this and told Micaela would send to the nurse. CB# [phone] documented in this encounter Plan of Treatment Not on file documented as of this encounter Visit Diagnoses Not on filedocumented in this encounter
--- OUTSIDE RECORDS SUMMARY | 2025-02-08 18:05 | XMS_ITS | Patient Health Record ---
Author Organization [facility] Address [address] [facility] [address] [place] [address] Care Team Providers Care Silo Worker Name Role Phone DR THOMAS WOODS Unavailable [phone] Allergies No Known Allergies Reason For Referral No Information Medications Medication SIG (Take, Route, Frequency, Duration) Notes Start Date End Date Status Cymbalta Active Omeprazole Active Gabapentin Active clonazePAM Active Social History Tobacco Use: Social History Observation Description Date Details (start date - stop date) Current Smoker NA - NA Tobacco Use/Smoking Question Answer Notes Are you a current smoker How often do you smoke cigarettes? every day Problems Problem Type SNOMED Code ICD Code Onset Dates Problem Status W/U Status Risk Notes Problem Chronic cholecystitis with calculus (05206960) Chronic cholecystitis with calculus (K80.10) Active confirmed Problem Nodule of adrenal cortex (disorder) (899696997) Adrenal nodule (E27.9) Active confirmed Problem Adrenal mass (E27.8) Active confirmed Plan Of Treatment No Information Insurance Providers Payer Name Payer Address Payer Phone Subscriber Number Group Number Insured Name Patient Relationship to Insured Coverage Start Date Coverage End Date MEDICARE PART B [address] [place] [phone] [id number] TATIANA DARBY Self - patient is the insured 1 [employer] MEDICARE SUPPLEMENT [address] [place] [phone] [id number] TATIANA DARBY Self - patient is the insured Medical (General) History Medical History History ICD Code acid reflux polyps rheumatoid arthritis Osteoarthritis GALL BLADDER DISEASE Surgical History Surgery Date(Month/Year) GASTRIC SLEEVE LAP DIANA C- SECTION X4 L ARM Hospitalization History Reason Date(Month/Year) SEE SX HX ABOVE
--- OUTSIDE RECORDS SUMMARY | 2025-02-08 18:05 | XMS_ITS | CCD ---
Author Name [facility], [id number] Address [address] [address] Organization [facility] Address [address] [address] Care Team Providers Care Line Lead Name Role Phone [facility] Demetri ABDI Unavailable Unavailable Allergies and Adverse Reactions Medication/Group Name Reaction Severity Date scopolamine 07/31/2022 Reason for Visit FU Medications Date Name Route Dose Frequency Instructions Start Date End Date Status Gabapentin Oral PO 1.0 capsule TID active Prednisone Oral orally 10.0 mg daily active Duloxetine Oral Delayed Release PO 1.0 capsule,de layed release(DR /EC) QD active Sertraline Oral PO 1.0 tablet QD active Methotrexate Oral orally 16.0 mg every week active Tramadol Oral PO 1.0 tablet PRN active Melatonin Oral ac tive Clonazepam Oral PO 1.0 tablet TID active Ibuprofen Oral ac tive Trazodone Oral PO 1.0 tablet QHS active Probiotics Oral a ctive Prazosin Oral orally 1.0 mg every evening active Hydroxyzine Pamoate Oral twice a day activ e Problems Diagnosis Status Date of Diagnosis Resolution Date Pancreatic cyst Active GERD Active Rheumatoid arthritis (disorder) Active Social History Date Name Value Sex Female
--- OUTSIDE RECORDS SUMMARY | 2025-02-08 18:05 | XMS_ITS ---
Author Name Interface, [id number] Address [address] [place] [address] [facility] Address [address] [address] Allergies and Adverse Reactions Plan Reason for Visit Encounters Immunizations Medications Problems Vital Signs Notes Section
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
--- OUTSIDE RECORDS SUMMARY | 2025-02-08 18:05 | XMS_ITS ---
Author Name Interface, [employer] Address [place] [address] [facility] Address [place] [address] Allergies and Adverse Reactions Plan Reason for Visit Encounters Immunizations Medications Problems Vital Signs Notes Section
--- OUTSIDE RECORDS SUMMARY | 2025-02-08 18:05 | XMS_ITS | Patient Health Record ---
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 Scraper Loader Operator Name Role Phone Daphnie Green MD Primary Care Provider Andres Wren MD, Pancho Unavailable [phone] Miri Gomes Unavailable [phone] Allergies Allergen (clinical drug ingredient) Drug/Non Drug Allergy documented on EMR Reaction Allergy Type Onset Date Status scopolamine scopolamine Unknown Drug Allergy Act donta methocarbamol methocarbamol itch Drug Allergy Active Results Component Value Reference Range Notes MRI: Cervical spine without contrast (54906) Reviewed date:09/14/2024 12:01:20 PM Interpretation: Performing Lab: Notes/Report: Urine tox screen / MS if ind icated Reviewed date:09/12/2024 11:27:58 AM Interpretation:Consistent Performing Lab: Notes/Report: Consistent Reason For Referral Reason Chronic joint pain; Bilateral shoulder pain; Patient has been on tramadol and wants something stronger for chronic pain of shoulders. She is seeing ortho and being evaluated for shoulder surgery but is requesting pain management. Diagnosis 1 Pain in unspecified joint (M25.50) Diagnosis 2 Other chronic pain ( G89.29) Diagnosis 3 Pain in right should er (M25.511) Diagnosis 4 Pain in left shoulde r (M25.512) Referring Provider First Name Daphnie Referring Provider Last Name Peter Referring Provider Speciality Family Med icine Referred Organization [facility] Referred Provider Pancho Wren Referred Address [address] [place], [id number], Referred Provider Specialty Pain Managem ent General Notes Pauline Deleon 03/2025 06:25:31 AM >Sent for insurance verification. Need SSN also., SapphireMonique polk Viri 08/29/2024 09:56:16 AM >[employer] BENEFITS. $60.00 COPAY., Pauline Deleon 08/30/2024 02:57:25 PM >Caller is not available. Referral Priority Routine Reason Sleep Study (12150)/ CPAP Titration Study (34797) as appropriate Diagnosis 1 Hypersomnia, unspeci fied (G47.10) Referral Organization [facility] Referring Provider First Name Pancho Referring Provider Last Name Siena Referring Provider Speciality Pain Manag ement Referred Provider Lab, Sleep General Notes Prior Authorization/ Notification is not required for the requested service(s) 92160 and/or 80397 at [facility]. Decision ID #: [id number].Rylan Brenda 09/26/2024 09:49:09 AM > referral faxedRylan Brenda 10/20/2024 11:45:26 AM > Spoke with Jennifer at [facility] Sleep [facility] - patient is scheduled as above. /Patient is on cancelation list if something sooner opens up. Referral Priority Routine Referral Appointment Date 12/07/2024 Reason Evaluation for possi ble interventional spine treatment (clinic closing due to physician's long term) Diagnosis 1 Cervicalgia (M54.2) Diagnosis 2 Myalgia of auxiliary muscles, head and neck (M79.12) Referral Organization [facility] Referring Provider First Name Pancho Referring Provider Last Name Siena Referring Provider Speciality Pain Manag ement Referred Provider Nitish Sosa Referred Provider Specialty Pain Managem ent General Notes Pancho Pauline 09:56:48 AM >FAXED TODAY., Tammy Fagan 11/03/2024 09:44:34 AM > Michael with Dr. Sosa office called with patient's appt date and time as above. Referral Priority Routine Referral Appointment Date 11/22/2024 Medications Medication SIG (Take, Route, Frequency, Duration) Notes Start Date End Date Status calcium carbonate 600 mg 2 tab(s) orally as directed Active Senna S 50 mg-8.6 mg 1-2 tab(s) orally a s directed Active clonazePAM 1 mg 1 tab(s) orally 2 times a day Active sertraline 100 mg 1 tab(s) orally once a day Active Cyclobenzaprine Hydrochloride 10 mg 1 tab(s) orally 3 times a day 09/20/2024 Active traMADol 50 mg 1-2 tabs orally Q4-6 H prn pain (max 6/day; hold within 4H of planned sleep); Duration: 28 days ICD-10: G89.29 10/18/2024 Active methotrexate 2.5 mg 7 tab(s) orally once a week Active Narcan 4 mg/0.1 mL 1 spray(s) intranasally once 09/20/2024 Active atorvastatin 40 mg 1 tab(s) orally once a day Active omeprazole 20 mg 1 cap(s) orally once a day Active buPROPion 150 mg/24 hours 1 tab(s) orally every 24 hours Active predniSONE 20 mg 1 tab(s) orally as directed for arthritis flare ups Active folic acid 1 mg 1 tab(s) orally once a day Active valACYclovir 500 mg 1 tab(s) orally once a day Active gabapentin 300 mg 1 cap(s) orally 3 times a day Active Vitamin D3 25 mcg 1 tab(s) orally once a day Active Humira Pre-filled Syringe 40 mg/0.4 mL as directed subcutaneously every other week Active ibuprofen 200 mg 1 tab(s) orally ever y 6 hours, as needed Active Social History Tobacco Use: Social History Observation Description Date Details (start date - stop date) Current Smoker NA - NA Tobacco use: Question Answer Notes : current smoker Are you interested in quitting? Ready to quit How many cigarettes a day do you smoke? 5 or les s How often do you smoke cigarettes? every day How soon after you wake up do you smoke your fir st cigarette? 6-30 min When did you start smoking? 1999 AUDIT-C (Standard) Question Answer Notes Did you have a drink contain ing alcohol in the past year? Yes How often did you have a dri nk containing alcohol in the past year? Monthly or less (1 point) How many drinks did you have on a typical day when you were drinking in the past year? 1 or 2 drinks (0 point) How often did you have six o r more drinks on one occasion in the past year? Never (0 point) Points 1 Interpretation Negative Problems Problem Type SNOMED Code ICD Code Onset Dates Problem Status W/U Status Risk Notes Problem High risk drug monitoring status (150608901) manager terminal (current) use of opiate analgesic (Z79.891) Active confirmed Problem Hypersomnia (54398394) Hypersomnia, unspecified (G47.10) Active confirmed Problem Chronic pain (66266281) Other chronic pain (G89.29) Active confirmed Problem Joint pain (41523807) Pain in unspecified joint (M25.50) Active confirmed Problem Pain of right shoulder region (finding) (0165189902) Pain in right shoulder (M25.511) Active confirmed Problem Shoulder joint pain (414512328) Pain in left shoulder (M25.512) Active confirmed Problem Cervicalgia (53881269) Cervicalgia (M54.2) Active confirmed Problem Long-term current use of drug therapy (052368979) Other assisted (current) drug therapy (Z79.899) Active confirmed Problem Myalgia (53825299) Myalgia of auxiliary muscles, head and neck (M79.12) Active confirmed Vital Signs Temperature 94.9 degrees Fahrenheit 10/18/2024 Blood pressure diastolic 76 mm Hg 10/18/2024 Oximetry 96 % 10/18/2024 Height 61 in 10/18/2024 Blood pressure systolic 109 mm Hg 10/18/2024 Weight 174.6 lbs 10/18/2024 BMI 32.99 kg/m2 10/18/2024 Encounters Encounter Location Date Provider Diagnosis [facility] [address] [place], [place] [id number] 09/12/2024 Miri Scott Cervicalgia M54.2 ; Myalgia of auxiliary muscles, head and neck M79.12 ; Hypersomnia, unspecified G47.10 and Other assisted (current) drug therapy Z79.899 [facility], [facility] [address] [place], [place] [id number] 09/20/2024 Pancho Wren Cervicalgia M54.2 ; Other chronic pain G89.29 ; Myalgia of auxiliary muscles, head and neck M79.12 ; Hypersomnia, unspecified G47.10 and manager terminal (current) use of opiate analgesic Z79.891 [facility], [facility] [address] [place], [place] [id number] 10/18/2024 Pancho Wren Cervicalgia M54.2 ; Other chronic pain G89.29 and Hypersomnia, unspecified G47.10 [facility], [facility] [address] [place], [place] [id number] 11/01/2024 Pancho Wren Assessments Encounter Date Diagnosis (ICD Code) Assessment Notes Treatment Notes Treatment Clinical Notes Section Notes 09/12/2024 Cervicalgia (ICD-10 - M54.2) Moderate to severe disc degeneration at C4-5 and C5-6 levels with moderate joint arthropathy noted on patient's 09/05/24 [facility] x-ray report. Plan [facility] MRI. Patient to consider treatment options pending outcome of imaging studies and evaluation by Dr. Wren. 09/12/2024 Myalgia of auxiliary muscles, head and neck (ICD-10 - M79.12) Continue use of baclofen as prescribed by PCP. Patent is interested in trigger point injections as long as they don't interfere with her upcoming right shoulder surgery. 10/18/2024 Other chronic pain (ICD-10 - G89.29) Patient reports that taking her pain medication allows her to complete her daily patient representative. Plan to continue oral opioid medication at today's visit. 10/18/2024 Cervicalgia (ICD-10 - M54.2) Chronic axial cervical spine pain and related myofascial pain syndrome. 09/20/2024 Other chronic pain (ICD-10 - G89.29) Patient states that primary care and orthopedics have shown no interest in treating her chronic pain with tramadol. Patient reports efficacious use of tramadol for chronic duration. Patient desires that this facility take over her tramadol prescritions. Risks, potential benefits and alternatives discussed. Plan to initiate opioid medication management via this facility. RADIOLOGIST'S IMPRESSION OF C-SPINE MRI ON 09/14/24: 1. No high-grade central or foraminal stenosis. 2. Degenerative disc disease and hypertrophic vertebral body osteophytes. 3. Slight reversal of the normal cervical lordosis at C3-4. 4. C3-4: Mild central and foraminal stenosis. 5. Mild central stenosis at C4-5. 6. Mild central foraminal stenosis at C5-6. 09/20/2024 Cervicalgia (ICD-10 - M54.2) Chronic axial cervical spine pain and related myofascial pain syndrome and headache syndrome / occipital neuralgia. Cervical spondylosis, disc disease, spinal stenosis and foraminal stenosis as noted upon review of cervical MRI report. Patient deferred on treatment option of referral for possible fluoroscope guided minimally invasive interventional spine treatment: patient stated that she will consider this option and notify this facility if a referral is desired. RADIOLOGIST'S IMPRESSION OF C-SPINE MRI ON 09/14/24: 1. No high-grade central or foraminal stenosis. 2. Degenerative disc disease and hypertrophic vertebral body osteophytes. 3. Slight reversal of the normal cervical lordosis at C3-4. 4. C3-4: Mild central and foraminal stenosis. 5. Mild central stenosis at C4-5. 6. Mild central foraminal stenosis at C5-6. 09/20/2024 Myalgia of auxiliary muscles, head and neck (ICD-10 - M79.12) Patent is interested in trigger point injections. Plan TPIs at today's visit. RADIOLOGIST'S IMPRESSION OF C-SPINE MRI ON 09/14/24: 1. No high-grade central or foraminal stenosis. 2. Degenerative disc disease and hypertrophic vertebral body osteophytes. 3. Slight reversal of the normal cervical lordosis at C3-4. 4. C3-4: Mild central and foraminal stenosis. 5. Mild central stenosis at C4-5. 6. Mild central foraminal stenosis at C5-6. 09/12/2024 Hypersomnia, unspecified (ICD-10 - G47.10) Patient is unsure of the facility name where her 2020 sleep study was completed in [place]. Patient to consider completion of an updated sleep study at a local facility. 10/18/2024 Hypersomnia, unspecified (ICD-10 - G47.10) A sleep study has been ordered. Patient reports it is scheduled for 12/08/24. Patient verbalized understanding to discuss the sleep study results with her PCP for possible treatment, if warrented. Plan to continue to restrict opioid usage in relation to sleep for safety concerns: patient has verbalized understanding to hold short-acting opioids within four hours of planned sleep. 09/12/2024 Other ad terminal makeup operator (current) drug therapy (ICD-10 - Z79.899) Patient was given a copy of the Treatment Agreement; signed on 09/05/24. 2022 opioid (OUD) risk tool score = 1. This places the patient in the low risk category. Plan urine toxicology screen today in anticipation of possibly starting opioid therapy at future visit as well as to assess for any prescribed, unprescribed, and / or illicit controlled substance(s). 09/20/2024 Hypersomnia, unspecified (ICD-10 - G47.10) Patient reports history of a remote sleep study and she does not remember the outcome or facility whre it was performed. Plan a sleep study. Plan to restrict opioid usage in relation to sleep: patient has verbalized understanding to hold short-acting opioids within four hours of planned sleep. Patient has been counseled on the risks of sleep apnea (if present), with or without opioid and / or other sedative usage, and the patient verbalized understanding and acceptance of the increased risk (sleep apnea, respiratory depression, ) with opioid and / or sedative substance usage. Patient has been counseled that synergistic risk occurs with concomitant opioid (such as tramadol) and sedative (such as clonazepam) usage. Patient has been counseled to hold opioid and / or sedative substances prior to planned sleep or dangerous activities and patient verbalized understanding that noncompliance would be at patient's increased risk. RADIOLOGIST'S IMPRESSION OF C-SPINE MRI ON 09/14/24: 1. No high-grade central or foraminal stenosis. 2. Degenerative disc disease and hypertrophic vertebral body osteophytes. 3. Slight reversal of the normal cervical lordosis at C3-4. 4. C3-4: Mild central and foraminal stenosis. 5. Mild central stenosis at C4-5. 6. Mild central foraminal stenosis at C5-6. 09/20/2024 intermediate (current) use of opiate analgesic (ICD-10 - Z79.891) Patient has a total daily MED of 60. This places the patient in the [facility] moderate risk category for total daily opioid usage. Patient has received the Opioid Analgesic REMS Patient Counseling Guide. Patient has had opportunity to read the Guide and ask questions pertaining to the Guide. Patient has been advised on 09/20/24 that any suspected patient misuse, abuse, or diversion of controlled substances (i.e. opioids/narcotics /pain killers) 5WILL result in dissolution of treatment from this clinic. Patients adhering to the concepts contained within the patient's Treatment Agreement will be protected from such termination of care. Patient signed an opioid consent form on 09/20/24. Patient has accepted a prescription for Narcan nasal spray. Patient was given a copy of the Treatment Agreement; signed on 09/05/24. 2022 opioid (OUD) risk tool score = 1. This places the patient in the low risk category. RADIOLOGIST'S IMPRESSION OF C-SPINE MRI ON 09/14/24: 1. No high-grade central or foraminal stenosis. 2. Degenerative disc disease and hypertrophic vertebral body osteophytes. 3. Slight reversal of the normal cervical lordosis at C3-4. 4. C3-4: Mild central and foraminal stenosis. 5. Mild central stenosis at C4-5. 6. Mild central foraminal stenosis at C5-6. 09/20/2024 Other RADIOLOGIST'S IMPRESSION OF C-SPINE MRI ON 09/14/24: 1. No high-grade central or foraminal stenosis. 2. Degenerative disc disease and hypertrophic vertebral body osteophytes. 3. Slight reversal of the normal cervical lordosis at C3-4. 4. C3-4: Mild central and foraminal stenosis. 5. Mild central stenosis at C4-5. 6. Mild central foraminal stenosis at C5-6. 09/12/2024 Other Patient states her pain has not been under control for several months as her PCP has tapered her medication to 30 tablet every 30 days. She states she previously took 2 tramadol tablets 3 times daily prior to moving to [place] with adequate pain management. Case reviewed and treatment plan approved by Dr. Wren. A 7 day prescription called to [facility] [place] as [facility] who will not fill controlled prescriptions from this office. 10/18/2024 Other The service was provided by MAGAN Posey, as part of the ongoing care plan established by Pancho Wren MD, who was present in the office for direct supervision during the encounter. Patient was provided with a letter at today's visit informing patient that this clinic is closing due to Dr. Wren's long term; see scanned document. Terminal prescriptions were given to the patient along with tapering instructions. Plan Of Treatment No Information Insurance Providers Payer Name Payer Address Payer Phone Subscriber Number Group Number Insured Name Patient Relationship to Insured Coverage Start Date Coverage End Date [employer] ADVANTAGE [address] [address] [place] [phone] [id number] Elaine Rinaldi Self - patient is the insured Medical (General) History Medical History History ICD Code Neck pain Cervical spondylosis, disc d isease, spinal stenosis and foraminal stenosis as noted upon review of cervical MRI report Headaches, chronic, occipito frontal (TPIs targeting right upper neck on 09/20/24 resulted in resolution of a current headache) Bilateral shoulder pain Rotator cuff tear, right Thoracic outlet syndrome Chronic joint pain Rheumatoid arthritis Osteopenia High risk medication use PTSD Anxiety and depression Tendinitis of right shoulder Adrenal tumors GERD Hyperlipidemia Nicotine depdendence, cigarettes Sleep disorder: patient has described her sleep as poor with complaints of frequent awakenings, excessive daytime sleepiness, restlessness during sleep, and difficulty in sleeping Obesity, mild Surgical History Surgery Date(Month/Year) x 4, 1986, 1988, 1991, 96 Hysterectomy, 1995 Cholecystectomy, 1996 ORIF, left arm fracture, performed in [place], [place], 07/25/17 Left arm surgery x 2, performed in [place], [place], 2018 Release of carpal tunnel, bi lateral, performed in [place], [place], 2019 Colonoscopy, performed in [place], [place] , 2019 Gastric sleeve surgery, perf ormed at [facility], 2019
--- OUTSIDE RECORDS SUMMARY | 2025-02-08 18:05 | XMS_ITS ---
Author Name Interface, [id number] lity Address [place] [address] Organization [facility] Address [place] [address] Allergies and Adverse Reactions Medication/Group Name Reaction Severity Date scopolamine 07/31/2022 Plan Date Type Value 11/06/2022 APPOINTMENT FU 07/31/2022 APPOINTMENT HOUSE PLAYER/LIVER & PANCR EATIC NODULES 07/17/2022 APPOINTMENT 1250 HOUSE PLAYER LAB 07/17/2022 APPOINTMENT 1250 LIVER LESIO NS Reason for Visit FU Encounters Date Name 07/17/2022 GERD 07/17/2022 Pancreatic cyst 07/17/2022 Rheumatoid arthritis (disorder) Immunizations Date Name Route Dose Instructions Refusal Reason Stat us 02/20/2021 Covid-19 vaccine (Moderna) Completed 01/23/2021 Covid-19 vaccine (Moderna) Completed 07/28/2022 Flu vaccine - Adult C ompleted Medications Date Name Route Dose Frequency Instructions Start Date End Date Status Hydroxyzine Pamoate Oral twice a day activ e Prednisone Oral orally 10.0 mg daily active Sertraline Oral PO 1.0 tablet QD active Duloxetine Oral Delayed Release PO 1.0 capsule,de layed release(DR /EC) QD active Clonazepam Oral PO 1.0 tablet TID active Probiotics Oral a ctive Prazosin Oral orally 1.0 mg every evening active Tramadol Oral PO 1.0 tablet PRN active Methotrexate Oral orally 16.0 mg every week active Melatonin Oral ac tive Gabapentin Oral PO 1.0 capsule TID active Ibuprofen Oral ac tive Trazodone Oral PO 1.0 tablet QHS active Problems Diagnosis Status Date of Diagnosis Resolution Date Pancreatic cyst Active GERD Active Rheumatoid arthritis (disorder) Active Vital Signs Date Type Value 07/17/2022 Pain Scale 4.00 07/17/2022 Body Temperature 98.60 07/17/2022 BSA 1.70 07/17/2022 BMI 29.29 07/17/2022 Height 61.00 07/17/2022 Weight 155.00 07/17/2022 Intravascular Systolic 112 07/17/2022 Intravascular Diastolic 70 07/17/2022 Oxygen Saturation 98.00 07/17/2022 Respiratory Rate 18.00 07/17/2022 Heart Beat 84.00 07/31/2022 BMI 28.72 07/31/2022 Height 61.00 07/31/2022 Weight 152.00 07/31/2022 Pain Scale 3.00 07/31/2022 BSA 1.68 07/31/2022 Respiratory Rate 16.00 07/31/2022 Heart Beat 76.00 07/31/2022 Body Temperature 99.10 07/31/2022 Intravascular Systolic 107 07/31/2022 Intravascular Diastolic 68 Notes Section * Hematology Consult ([facility]) [address] [address] P: F:?? PATIENT:??TATIANA DARBY :??1965 Date of Service:??07/17/2022 Referring Provider: Dr Lucius Berman (Surgery) Reason for Consult: Evaluation of patient with stable small pancreatic cysts. Chief Complaint: I have small pancreatic cysts. Principal Diagnosis: * Pancreatic cyst ( ICD-10:K86.2 ;Cyst of pancreas ) Diagnosis*: History of Present Illness: This is a??pleasant 57-year-old white female??with a history of obesity for which she underwent a gastric sleeve operation in 2001.?? Subsequent significant problems with gastric stricture??related??nausea vomiting and dyspepsia.?? She has been followed by gastroenterology Dr. Pete Ivey.?? She wasbeing referred for evaluation of that revision of the gastric sleeve??operation.?? MRI done prior to this 08/03/2021??revealed bilateral adrenal hyperplasia??and adenomas measuring up to 2.5 cm.?? 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 Recommendation was made for??yearly surveillance MRI??per standard ACR criteria. Patient presents today??for initial consultation.?? She comes together with her .?? Patient expected to see a pancreatobiliary surgeon??to talk about biopsy of her pancreas.?? She reports chronic mild intermittent to moderate fatigue. ??She reports fluctuating weight related to??her gastric strictures. ??She recently has gained about 10 pounds in weight back.?? She reports unremarkable bowel movements and urination currently. ??No neuropathy.?Smokes about 1/2 pack/day and has done so for the last 20 years.?? She has a long history of that rheumatoid arthritis??for which she is on methotrexate??and prednisone currently??she reports intermittent numbness and discomfort of the left arm related to reported thoracic outlet syndrome. Interval History: Past Medical History: 1.?? 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 2.?GERD. 3.?? History of obesity. 4. ??Rheumatoid arthritis. 5. ??Reported history of thoracic outlet syndrome with symptom from left upper extremity. 6.?? Depression and anxiety. Past Surgical History*: 1.?? Gastric sleeve surgery 2002. 2.?? ORIF left arm??2018. 3.?? x4. 4.?? Hysterectomy. ??Ovaries left intact. 5.?? Cholecystectomy. FIELD GAUGER History: Medications: * Tramadol Oral 50 mg tablet 1 tablet PO PRN * Cymbalta (Duloxetine Oral Delayed Release) 20 mg capsule,delayed release(DR/EC) 1 capsule,delayed release(DR/EC) PO QD * Klonopin (Clonazepam Oral) 0.5 mg tablet 1 tablet PO TID * Zoloft (Sertraline Oral) 100 mg tablet 1 tablet PO QD * Neurontin (Gabapentin Oral) 300 mg capsule 1 capsule PO TID * Trazodone Oral 150 mg tablet 1 tablet PO QHS Medications reviewed and reconciled with patient. ?? Allergies: * scopolamine Smoking Status: Smoking Tobacco : Current every day smoker; Smokeless Tobacco : none found; Vaping : none found Social History: . ??4 grownup children ages 35, 33, 30 and 25.?? Patient is on disability. 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 Approximately [id number] smoking history with patient currently smoking approximately 1/2 pack/day.?? No alcohol consumption no illicit drug use. Family History*: Mother alive and healthy. ??Father with history of pancreatic cancer. ??Paternal uncle with historylung cancer. ROS: Positives as listed in the HPI 10 point review of systems otherwise unremarkable. Vitals: Height: 61 in; Weight: 155 lb; Blood pressure: 112/70, Pulse: 84, Temperature: 98.6 F, Respirations: 18, Pain Scale: 4 Karnofsky: Not Assessed Physical Exam: GENERAL: Well developed, well nourished??white female, no acute distress, Alert and oriented x3, ambulating with ease in the clinic. VITALS:?? Stable and afebrile. HEENT: Normocephalic and atraumatic. Pupils reactive to light and accomodation. Extra ocular muscles intact. Sclerae anicteric.?? Oropharynx is clear.?? NECK:?? Supple, no thyromegaly, no lymphadenopathy, no jugular venous distention. CHEST: Clear to auscultation bilaterally. CARDIOVASCULAR: Regular rate and rythm. No murmurs, gallops or rubs ABDOMEN: Soft, nontender and nondistended, No hepatosplenomegaly or masses. normoactive bowelsounds. EXTREMITIES:?? No clubbing or cyanosis. No edema. HEME: No cervical, axillary or inguinal lymphadenopathy. NEURO: No gross focal deficits. Motor 5/5 throughout. Sensory intact to touch. Labs: ? Labs*: Imaging: {} Problem List: * Pancreatic cyst ( ICD-10:K86.2 ;Cyst of pancreas ) * GERD ( ICD-10:K21.9 ;Gastro-esophageal reflux disease without esophagitis ) * Rheumatoid arthritis (disorder) ( ICD-10:M06.9 ;Rheumatoid arthritis, unspecified ) Impression: Assessment and plan: This is a??pleasant 57-year-old white female??with a history of obesity for which she underwent a gastric sleeve operation in 2001.?? Subsequent significant problems with gastric stricture??related??nausea vomiting and dyspepsia.?? She has been followed by gastroenterology Dr. Pete Ivey.?? She wasbeing referred for evaluation of that revision of the gastric sleeve??operation.?? MRI done prior to this 08/03/2021??revealed bilateral adrenal hyperplasia??and adenomas measuring up to 2.5 cm.?? 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 Recommendation was made for??yearly surveillance MRI??per standard ACR criteria. -Reviewed available imaging reports with patient.?? 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 Follow-up on a as needed basis. Secondary diagnosis: 2.?GERD. 3.?? History of obesity. 4. ??Rheumatoid arthritis. 5. ??Reported history of thoracic outlet syndrome with symptom from left upper extremity. 6.?? Depression and anxiety. Plan: . 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 Weight: 155 lb (70.31 kg). Height: 61 in (154.94 cm). BMI: 29.29 (kg/m2) . BSA: 1.7 (m2) . Temperature: 98.6 F (37.00 C) axillary. Pulse: 84 (/min) sitting. Respirations: 18 (/min) . Blood pressure: 112/70 (mm Hg) right arm Regular. O2 Saturation: 98 (%) at rest. Entered by Marcia NARAYANAN 07/17/2022 13:56 Time: 02:00. Pain Scale: 4 Middle back pain. Entered by Marcia NARAYANAN 07/17/2022 13:54 Patient Assessment : Positive results Assessment : Complains of Pain-4 (Middle back pain). Entered By Marcia NARAYANAN on 13:54
--- OUTSIDE RECORDS SUMMARY | 2025-02-08 18:06 | XMS_ITS | Patient Health Record ---
Author Organization [facility] Arabella beckman Billing Info Address [address] [place] [id number] Care Team Providers Care Agricultural Engineering Technologist Name Role Phone Mariangel Sosa Primary Care Provider JAVI Bean Unavailable [phone] LYNDON INIGUEZ Unavailable [phone] Allergies Allergen (clinical drug ingredient) Drug/Non Drug Allergy documented on EMR Reaction Allergy Type Onset Date Status scopolamine Scopolamine Unknown Drug Allergy Act donta Reason For Referral No Information Medications Medication SIG (Take, Route, Fr equency, Duration) Notes Start Date End Date Status Lyrica Active Tylenol with Codeine #3 Active Gabapentin 300 MG 1 capsule before bed time Orally Once a day Active Cymbalta 60 MG 1 capsule Orally Once a day Active Alprazolam 0.25 MG 1 tablet Orally Twice a day Active Immunizations Vaccine Route Administration Date Status Comme nts FLU (Past vaccine of unknown type) Unknown 09/04/2017 P ending Social History Tobacco Use: Social History Observation Description Date Details (start date - stop date) Current Smoker NA - NA Tobacco Status: Question Answer Notes Patient is a current every day smoker Encounters Encounter Location Date Provider Diagnosis [id number] LIVE BY LOSING [address] [place], [place] [id number] 09/30/2024 LYNDON INIGUEZ Plan Of Treatment No Information Medical (General) History Medical History History ICD Code GASTRITIS Surgical History Surgery Date(Month/Year) LEFT CTR 01/19/18 Hospitalization History Reason Date(Month/Year) no reported hospitalization outside of s urgical instance
--- OUTSIDE RECORDS SUMMARY | 2025-02-08 18:06 | XMS_ITS | Encounter Summary ---
Author Organization [facility] Address [address] [place] [address] Care Team Providers Care Gear Changer Name Role Phone Unavailable Primary Care Provider Unavailabl e Reason for Visit * Reason Onset Date Comments Bariatrics 02/07/2025 Encounter Details Date Type Department Care Team ([facility] st Contact Info) Description 02/07/2025 Telephone [facility] [address] [place] [address] Don Soriano MD [address] [place] [phone] Bariatrics Social History Tobacco Use Types Packs/Day Years Used Date Smoking Tobacco: Former Cigarettes Smokeless Tobacco: Never Comments Unknown Sex and Gender Information Value Date Recorded Sex Assigned at Not on file Legal Sex Female 8:43 AM CDT Gender Identity Not on file Sexual Orientation Not on file documented as of this encounter Miscellaneous Notes * Telephone Encounter - Ariana Parham - 02/07/2025 2:22 PM CDT Called regarding the bariatric program. Left voice message requesting a return call. BAM Meredith, M.Ed. Certified Clinical Fur Grader Bariatric Clinical Navigator [phone] documented in this encounter Plan of Treatment Not on file documented as of this encounter Visit Diagnoses Not on filedocumented in this encounter
--- OUTSIDE RECORDS SUMMARY | 2025-02-08 18:06 | XMS_ITS | CCD ---
Author Name Interface, [id number] lity Address [place] [address] [facility] Address [place] [address] Care Team Providers Care Respiratory Physician Name Role Phone Illum Demetri ABDI Unavailable Unavailable Allergies and Adverse Reactions Reason for Visit Medications Problems Social History
--- OUTSIDE RECORDS SUMMARY | 2025-02-08 18:06 | XMS_ITS | Encounter Summary ---
Author Organization [facility] Address [address] [place] [address] Care Team Providers Care Energy Control Officer Name Role Phone Unavailable Primary Care Provider Unavailabl e Reason for Visit * Reason Onset Date Comments Bariatrics 02/07/2025 Encounter Details Date Type Department Care Team ([facility] st Contact Info) Description 02/07/2025 Telephone [facility] [address] [place] [address] Don Soriano MD [address] [place] [phone] Bariatrics Social History Tobacco Use Types [...] Telephone Encounter - Ariana Parham - 02/07/2025 2:54 PM CDT Called regarding the bariatric program. All steps of the program were explained. Discussed the costof services not covered by insurance. Patient will do psychology testing and assessment online through [employer]. Informed her that any amount owed will need to be paid before [facility] [employer] will release the results to us. She verbalized understanding. Encouraged patient to reach out to me with any questions. Letter sent via email per patient's request; placed in the mail as well. BAM Marshall, MEd Certified Clinical Sharepoint Solutions Architect Bariatric Patient Navigator [phone] ' documented in this encounter Plan of Treatment Not on file documented as of this encounter Visit Diagnoses Not on filedocumented in this encounter
--- OUTSIDE RECORDS SUMMARY | 2025-02-08 18:06 | XMS_ITS | Clinical Summary ---
Author Organization [facility] Address [address] [place] [address] Care Team Providers Care Cook Mess Name Role Phone Unavailable Primary Care Provider Unavailabl e Allergies Active Allergy Reactions Criticality Noted Date Comments Methocarbamol Hives High 10/10/2024 Scopolamine Nausea and Vomiting Low 10/10/2024 Medications atorvastatin (LIPITOR) 40 mg tablet Take 1 Tablet by mouth daily. 08/17/2024 Active buPROPion HCL (WELLBUTRIN XL) 150 mg Extended Release 24 hour tablet take 1 tablet by mouth in the morning 08/16/2024 Active clonazePAM (KlonoPIN) 1 mg tablet Take 1 Tablet by mouth 2 times daily. 09/15/2024 Active cyclobenzaprine (FLEXERIL) 10 mg tablet 10/05/2024 Active folic acid (FOLVITE) 1 mg tablet 09/03/2024 Active gabapentin (NEURONTIN) 300 mg capsule Take 1 Capsule by mouth 3 times daily. 07/07/2024 Active omeprazole (PriLOSEC) 20 mg Capsule, Delayed Release(E.C.) Take 1 Capsule by mouth daily. 10/02/2024 Active sertraline (ZOLOFT) 100 mg tablet 09/03/2024 Active traMADol (ULTRAM) 50 mg tablet TAKE 1 OR 2 TABLETS BY MOUTH EVERY 4 TO 6 HOURS NEEDED FOR PAIN FOR 28 DAYS. (MAX 6/DAY; HOLD WITHIN 4 HOURS OF PLANNED SLEEP) 09/20/2024 Active Active Problems Problem Noted Date Diagnosed Date Gastroesophageal reflux dise ase with esophagitis without hemorrhage 11/17/2024 Encounters Date Type Department Care Team Description 9:45 AM CDT Telephone Check Up [facility] Gen Spec Surg [address] [place] [address] Don Soriano MD 5 Telephone [facility] [address] [place] [address] Don Soriano MD Bariatrics 5 Telephone [facility] [address] [place] [address] Don Soriano MD Bariatrics 5 External Device Data STL ABSTRACTION Provider, Abstract 5 Telephone [facility]enter[facility] - [place] [id number] [facility] [address] [place] [address] Dayan Cordon RN Results 5 7:45 AM CDT - 5 8:19 AM CDT Surgery [facility] [address] [place] [address] Don Rodriguez, DO ESOPHAGEAL MOTILITY MANOMETRY STUDY 5 7:30 AM CDT - 5 8:06 AM CDT Hospital Encounter [facility] [address] [place] [address] Don Rodriguez, DO Discharge Disposition: Home or Self Care 5 Telephone [facility] [place] [address] [place] [address] [address] [place] [address] Don Soriano MD Question; Information 5 Orders Only [facility] [address] [place] [address] Don Soriano MD 5 Telephone [facility] [place] [address] [facility] [address] [place] [address] Edwards pt 5 External Device Data STL ABSTRACTION Provider, Abstract 5 External Device Data STL ABSTRACTION Provider, Abstract 5 External Device Data STL ABSTRACTION Provider, Abstract 5 Telephone [facility] [place] [address] [facility] [address] [place] [address] Dayan Cordon, manager of compensation Only 5 External Device Data STL ABSTRACTION Provider, Abstract 5 Telephone [facility]urg [address] [place] [address] Don Soriano MD reschedule appointment 5 Telephone [facility] [address] [place] [address] Dayan Cordon, LENO Results 5 Telephone [facility] [place] [address] [place] [address] [address] [place] [address] Don Soriano MD Pt Bo ; Question; Information 5 Orders Only [facility] [address] [place] [phone] Don Soriano MD 5 Telephone [facility] [address] [place] [phone] Dejon Romeor MD Questions 5 External Device Data STL ABSTRACTION Provider, Abstract 5 1:35 PM CDT Anesthesia Event [facility] [address] [place] [phone] Jc Daugherty MD 5 12:55 PM CDT - 5 2:27 PM CDT Hospital Encounter [facility] [address] [place] [address] Dejon Romero MD Gastroesophageal reflux disease with esophagitis without hemorrhage Discharge Disposition: Home or Self Care 5 12:40 PM CDT - 5 1:00 PM CDT Surgery [facility] [address] [place] [address] Dejon Romero MD ESOPHAGOGASTRODUODENOSCOPY 5 External Device Data STL ABSTRACTION Provider, Abstract 5 External Device Data STL ABSTRACTION Provider, Abstract from Last 3 Months Family History Medical History Relation Name Comments Colon Cancer Neg Hx Social History Tobacco Use Types Packs/Day Years Used Date Smoking Tobacco: Former Cigarettes Smokeless Tobacco: Never Tobacco Cessation:Counseling Given: Not Answered Comments Unknown Sex and Gender Information Value Date Recorded Sex Assigned at Not on file Legal Sex Female 8:43 AM CDT Gender Identity Not on file Sexual Orientation Not on file Last Filed Vital Signs Vital Sign Reading Time Taken Comments Blood Pressure 125/88 11/09/2024 2:15 PM CDT Pulse 82 11/09/2024 2:15 PM CDT Temperature - - Respiratory Rate 14 11/09/2024 2:15 PM CDT Oxygen Saturation 97% 11/09/2024 2:15 PM CDT Inhaled Oxygen Concentration - - Weight 80.7 kg (178 lb) 11/02/2024 10:13 AM CDT Height - - Body Mass Index - - Plan of Treatment Health Maintenance Due Date Last Done Comments Pre-Diabetes and Diabetes Screening 1965 DTAP/TDAP/TD VACCINES (1 - Tdap) 1985 HEPATITIS B VACCINES (1 of 3 - 19+ 3-dose series) 03/22 HPV/Cotest (21-29) 1987 CERVICAL CANCER SCREENING 1996 HPV/Cotest (30-65) 1996 PAP SMEAR 1996 BREAST CANCER SCREENING 2006 COLORECTAL SCREENING 2011 Colorectal Cancer Screening 2011 FIT-DNA Q 3 years 2011 FIT/FOBT Q 1 year 2011 Flex Sig/CT Colonography Q 5 years 2011 ZOSTER VACCINE (1 of 2) 2016 [place] Ad[place]) Prev entative Visit/Annual Wellness Visit 06/22/2024 INFLUENZA VACCINE (#1) 2025 Medical Devices Implanted Type Area Director Biologics Device Identifier Shelf Expiration Date Model / Serial / Lot Capsule Ya Ph Testing s-0635 - [id number] Implanted:Qty: 1 on 11/09/2024 by Dejon Romero MD at [facility] Other N/A: 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 GIVEN [id number] / / Procedures Procedure Name Priority Date/Time Associated Diagnosis Comments MANOMETRY STUDY, ESOPHAGEAL Routine 12/22 8:35 AM CDT [place] ESOPHAGEAL MOTILITY STUDY W/INTERP&RPT 01/19/2025 7:45 AM CDT History of sleeve gastrectomy Heartburn Regurgitation of stomach contents Case Notes Entry date:10/06/2024 Procedure :Manometry Special Notes: Dx: History of sleeve gastrectomy Heartburn Regurgitation of stomach contents Last Procedure date location na Referring Provider DON SORIANO GI Doc:Any Insurance: [facility] Last GI appt: na Other info: ESOPHAGEAL PH PROBE - 48 HR Routine 10/21 8:16 AM CDT UPPER ENDOSCOPY REPORT 1:48 PM CDT PATHOLOGY Pathology 11/09/2024 1:40 PM CDT [place] GASTROESOPHAG REFLX TEST W/TELEMTRY PH ELTRD 11/09/2024 12:40 PM CDT History of sleeve gastrectomy Heartburn Regurgitation of stomach contents Case Notes Procedure :EGD W/YA Special Notes: Dx: History of sleeve gastrectomy Regurgitation of stomach contents Heartburn BT:NONE BT managed by: Diabetic: NO Diabetic/WT med:NONE Procedure Loc & Reason :[facility] BMI:31.6 Last Procedure date & location 1st egd Referring ProviderDON SORIANO GI Doc:Any Insurance: [facility] GI appt na [place] ESOPHAGOGASTRODUODENOSCOP Y TRANSORAL DIAGNOSTIC 11/09/2024 12:40 PM CDT History of sleeve gastrectomy Heartburn Regurgitation of stomach contents Case Notes Procedure :EGD W/YA Special Notes: Dx: History of sleeve gastrectomy Regurgitation of stomach contents Heartburn BT:NONE BT managed by: Diabetic: NO Diabetic/WT med:NONE Procedure Loc & Reason :[facility] BMI:31.6 Last Procedure date & location 1st egd Referring ProviderEDDON WOLFE GI Doc:Any Insurance: [facility] Last GI appt na from Last 3 Months Results * MANOMETRY STUDY, ESOPHAGEAL (01/19/2025 8:35 AM CDT) oDn Soriano MD GI PROCEDURE ORDERABLES Final Result * ESOPHAGEAL PH PROBE - 48 HR (11/16/2024 8:16 AM CDT) Don Soriano MD GI PROCEDURE ORDERABLES Final Result * UPPER ENDOSCOPY REPORT (11/09/2024 1:48 PM CDT) Narrative Procedure Note Dejon Romero MD - 11/09/2024 1:48 PM CDT [facility] Patient Name: Elaine Rinaldi Procedure Date: 11/09/2024 Date of : 1965 Admit Type: Outpatient Age: 59 Attending MD: Dejon Romero MD, Procedure: Upper GI endoscopy Indications: Regurgitation Providers: Dejon Romero MD Referring MD: Medicines: Monitored Anesthesia Care Complications: No immediate complications. Procedure: Pre-Anesthesia Assessment: - Warren Protocol: - Pre-procedure Verification: Prior to the procedure, the patient's identity was verified by full name and date of . The patient's identity was verified on all pertinent medical records, including History and Physical. Also prior to the procedure, a History and Physical was performed, and patient medications, allergies and sensitivities were reviewed. The patient's tolerance of previous anesthesia was reviewed. The patient is competent. The risks and benefits of the procedure and the sedation options and risks were discussed with the patient. All questions were answered and informed consent was obtained. - Marking: The endoscopic procedure was visually marked on a patient wrist band delineating the patient name, proposed procedure and endoscopist's initials. - Time-Out: Prior to the start of the procedure, the patient's identification, proposed procedure, accurate signed consent, correctly labeled images and records, and need for prophylactic antibiotics were verified by the physician, the nurse, the tape keller operator and the plc technician in the endoscopy suite. - Prior to the procedure, a History and Physical was performed, and patient medications, allergies and sensitivities were reviewed. The patient's tolerance of previous anesthesia was reviewed. - The risks and benefits of the procedure and the sedation options and risks were discussed with the patient. All questions were answered and informed consent was obtained. - ASA Grade Assessment: III - A patient with severe systemic disease. After obtaining informed consent, the endoscope was passed under direct vision. Throughout the procedure, the patient's blood pressure, pulse, and oxygen saturations were monitored continuously. The Endoscope was introduced through the mouth, and advanced to the second part of duodenum. The upper GI endoscopy was accomplished without difficulty. The patient tolerated the procedure well. Estimated Blood Loss: Estimated blood loss was minimal. Findings: The Z-line was found 34 cm [...] would resume PPI BID Dejon Romero MD 11/09/2024 1:47:56 PM This report has been signed electronically. Number of Addenda: 0 Note Initiated On: 11/09/2024 1:25 PM Scope Withdrawal Time Scope In: Scope Out: [address] [place], [place] Dejon Romero MD GI PROCEDURE ORDERABLES Ibeth l Result * PATHOLOGY (11/09/2024 1:40 PM CDT) CASE REPORT Surgical Pathology Report Case: [id number] Authorizing Provider: Dejon Romero MD Collected: 11/09/2024 01:40 PM Ordering Location: [facility] Received: 11/09/2024 03:55 PM Endoscopy Pathologist: Scott Whatley MD Specimen: Stomach 7:43 AM CDT [facility] ADDENDUM 1 The immunostain for H. pylori on the gastric biopsy is negative. Scott Whatley MD [id number] 5 7:43 AM CDT [facility] Addendum electronically signed by Scott Whatley MD on 11/11/2024 at 0743 CDT FINAL DIAGNOSIS A. Stomach, biopsy - benign gastric mucosa with focal mild chronic inflammation - no active gastritis identified - H. pylori immunostain pending, with results to follow in addendum. Scott Whatley MD [id number] 5 7:43 AM CDT [facility] at 1001 CDT DIAGNOSIS COMMENT After review of the H&E stained slide(s) an immunostain for Helicobacter was done on block A1 due to the clinical concern. The results will follow in an addendum to this report. 5 7:43 AM CDT [facility] GROSS DESCRIPTION A. Received in formalin labeled Rinaldi -gastric biopsy for H. pylori is a single fragment of pina-pink soft tissue, 0.3 cm in greatest dimension. The specimen is submitted entirely in A1. Darline Chaparro 5 7:43 AM CDT [facility] OPERATIVE PROCEDURE 1: ESOPHAGOGASTRODUODENOSCO PY 2: PH STUDY 48 HOUR 5 7:43 AM CDT [facility] CLINICAL INFORMATION History of sleeve gastrectomy Heartburn Regurgitation of stomach contents 5 7:43 AM T [facility] COMMENT The [employer] voice-activated dictation system may have been used in the creation of this report. Inherent to this system is the possibility of errors in syntax, grammar, punctuation, or other areas that could impact interpretation. If there are interpretive questions about the report, please contact the performing pathologist. Unless gross only is specified in the diagnosis, the microscopic examination substantiates the above cited diagnosis. The performance characteristics of all immunohistochemical stains cited in this report (if any) were determined by the [facility] of [facility] in compliance with CLIA'88 regulations. Some of these tests rely on the use of analyte specific reagents and are subject to specific labeling requirements by the FDA. All controls show appropriate reactivity. This testing was developed by the [facility]. It has not been cleared or approved by the FDA. The FDA has determined that such clearance or approval is not necessary. 5 7:43 AM CDT [facility] Tissue ENTIRE STOMACH / Unknown Collection / Unknown 11/09/2024 1:40 PM CDT 11/09/2024 3:55 PM CDT us Dejon Romero MD PATHOLOGY/CYTOLOGY ORDERABLE S Edited Result - Final [facility] CLIA # [id number] [address] [address] from Last [address] [facility] [id number] Advance Directives For more information, please contact: [phone] * Full Code (Latest Code Status on File) Date Activated Date Inactivated Comments 11/09/2024 1:25 PM 11/09/2024 4:38 PM
--- OUTSIDE RECORDS SUMMARY | 2025-02-08 18:06 | XMS_ITS ---
Author Name Interface, [id number] lity Address [place] [address] [facility] Address [place] [address] Allergies and Adverse Reactions Plan Reason for Visit Encounters Immunizations Medications Problems Vital Signs Notes Section
--- NOTE | 2025-02-08 18:43 | XRR_ITS ---
PROCEDURE INFORMATION: Exam: XR Left Knee Exam date and time: 02/08/2025 7:18 PM Age: 59 years old Clinical indication: Injury or trauma; Fall; Blunt trauma; Knee; Left TECHNIQUE: Imaging protocol: Radiologic exam of the left knee. Views: 3 views. COMPARISON: CR (LOW EXM, ) 02/08/2025 7:18 PM FINDINGS: Bones/joints: Comminuted displaced depressed fracture of the lateral tibial plateau and tibial eminence. Slight lateral subluxation of the femur relative to the tibia. No dislocation. Nondisplaced fibular head fracture. No femoral or patellar fracture is visible. Lipohemarthrosis noted. Soft tissues: Unremarkable. XR/XR knee LT 3V* [id number] IMPRESSION: 1. Depressed lateral tibial plateau fracture. 2. Proximal fibular fracture.
--- NOTE | 2025-02-08 18:43 | XRR_ITS ---
PROCEDURE INFORMATION: Exam: XR Left Tibia and Fibula Exam date and time: 02/08/2025 7:18 PM Age: 59 years old Clinical indication: Injury or trauma; Fall; Blunt trauma; Lower leg; Left TECHNIQUE: Imaging protocol: Radiologic exam of the left tibia and fibula. Views: 2 views. COMPARISON: CR (LOW EXM, ) 02/08/2025 7:18 PM FINDINGS: Bones/joints: There is a depressed fracture of the lateral tibial plateau and a nondisplaced fracture of the fibular head. Distal tibia and fibula are intact. Ankle is unremarkable. Lipohemarthrosis is visible at the knee. Soft tissues: Visible soft tissues are unremarkable. XR/XR tibia fibula LT 2V [id number] IMPRESSION: 1. Lateral tibial plateau fracture. 2. Proximal fibular fracture. 3. Lipohemarthrosis at the knee.
--- NOTE | 2025-02-08 19:01 | XRR_ITS ---
PROCEDURE INFORMATION: Exam: XR Left Ankle Exam date and time: 02/08/2025 7:18 PM Age: 59 years old Clinical indication: Injury or trauma; Fall; Blunt trauma; Ankle; Left TECHNIQUE: Imaging protocol: Radiologic exam of the left ankle. Views: 3 or more views. COMPARISON: CR (LOW EXM, ) 02/08/2025 7:18 PM FINDINGS: Bones/joints: Alignment is normal. Joint spaces are preserved. No acute fracture. There are plantar and superior calcaneal enthesophytes of unknown significance. Soft tissues: Lateral malleolar soft tissue edema. XR/XR ankle LT min 3V* [id number] IMPRESSION: No acute fracture.
--- NOTE | 2025-02-08 19:05 | ED_ITS ---
HPI - Extremity Problem General: Chief complaint: Extremity Injury, Lower Stated complaint: Fall Time Seen by Provider: 02/08/25 18:46 Source: patient and EMS Mode of arrival: EMS Limitations: no limitations History of Present Illness: 59-year-old female states that she fell down roughly 4 steps prior to arrival. She landed on her left leg she complains of pain mainly in her left tib-fib and also some left ankle knee pain denies any hip pain denies hitting her head denies any neck pain. Associated symptoms: Deny chest pain, fever(s) or rash Related Data Previous Rx's ?Medication ?Instructions ?Recorded prednisone 20 mg tablet See Rx Instructions PO .COMP BLANCHE 05/31/24 PRN joint pain flare #30 tabs gabapentin 300 mg capsule 300 mg PO TID #90 caps 07/04 acyclovir 800 mg tablet 800 mg PO BID #180 tabs 07/24 02/13 acyclovir 5 % topical ointment 1 applic topical 6XD 7 days #5 09/15/24 (Zovirax) grams clonazepam 1 mg tablet 1 mg PO BID #60 tabs 5 tramadol 50 mg tablet 50 mg PO Q6H PRN pain #120 t abs 10/31/24 bupropion HCl 150 mg 24 hr tablet, See Rx Instructions .Route 12/06/24 extended release .COMPLEX #90 tabs omeprazole 40 mg capsule,delayed 40 mg PO BID #180 cap s 12/07/24 release atorvastatin 40 mg tablet See Rx Instructions .Route 0 12/26/24 .COMPLEX #90 tabs cyclobenzaprine 10 mg tablet 10 mg PO TID PRN muscle s pasm #30 12/26/24 tabs etanercept 50 mg/mL (1 mL) 50 mg SUBCUT .Q7days #4 mL 12/26/24 subcutaneous pen injector (Enbrel Livanick) folic acid 1 mg tablet 1 mg PO DAILY #90 tabs 12/26 methotrexate sodium 2.5 mg tablet 2.5 mg PO .once week ly #74 tabs 12/26/24 prednisone 5 mg tablet 5 mg PO DAILY #90 tabs 12/26 sertraline 100 mg tablet 100 mg PO DAILY #90 tabs Allergies Allergy/AdvReac Type Severity Reaction Status Date / Time methocarbamol (From Robaxin) Allergy ADR-Itching Verified 12/26/24 14:42 scopolamine Allergy ADR-Nausea Verified 12/26/24 14:42 Review of Systems Const: Denies: fever(s), chills, body aches or change in appetite ENMT: Denies: throat pain or dental pain Card: Denies: chest pain Resp: Denies: dyspnea GI: Denies: abdominal pain, nausea, vomiting or diarrhea Musc: Reports: extremity pain; Denies: neck pain or back pain Skin/Breast: Denies: rash Neuro: Denies: headache(s) PFS ED PFSH: Medical History Elevated blood pressure reading without diagnosis of hypertension Cyst of left kidney on CT August 2024; US shows no abnormality [facility]; reviewed; MRI done prior to 08/13 showed bilateral adrenal hyperplasia nad adenomas measuring 2.5cm; 2 hepatic hemangiomas and focal dilation of pain pancreatic duct within the head and several pancreatic cystic lesions measuring 9mm felt to reflect sw eqeula of prior pancreatitis vesus cobined main duct and side duct PIMN; f/u MRI 04/12 showed same but pancreatic cyst lesions 9mm--recommendation made for yearly surveillance MRI--CT done at [facility] 09.13 shows no pancreatic cyst Nicotine dependence, cigarettes, uncomplicated Pain management contract signed 08.16.24 for tramadol--has been on t his from prior [place] doc Chronic joint pain seeing rheumatology Encounter for chronic pain management tramadol for chronic joint pain Depression, major Recurrent cold sores High risk medication use Seronegative rheumatoid arthritis of both hands Tendinitis of right shoulder Adrenal tumor MRI from [place] 2021 2.5cm bilateral adrenals; repeat CT [facility] 09/13--same size Right shoulder pain Osteopenia Rheumatoid arthritis Thoracic outlet syndrome Anxiety Hyperlipidemia GERD (gastroesophageal reflux disease) Surgical History Hx of esophagogastroduodenoscopy EGD 05/13 in [place]: erythematous gastropathy; gastric sleeve with very narrow gastric lumen and distal gastric body--consider surgical revision Carpal tunnel syndrome, bilateral surg Bariatric surgery status Hx of colonoscopy 2019? History of surgery on upper extremity had fx; has had 3 surgeries Left arm History of hysterectomy ovaries remaining; due to bleeding History of cholecystectomy H/O gastric sleeve Family History Father Pancreatic cancer Mother Diabetes mellitus type 1 Heart disease Social History Smoking and tobacco/nicotine status: current every day tobacco/nicotine user cigarettes [ Other cigarette details: smoking 2-3 cigarettes per day] Alcohol intake: current Alcohol intake frequency: holidays/special occasions only Alcohol type: wine Substance/Drug Use: never Household members: spouse and other Details: mother in law Marital status: Number of children: 4 Education level details: FARM [employer] E[employer] Current occupational status: disabled 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; 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 Physical Exam Const: COMMON NORMALS: no acute distress, patient oriented x3 and healthy appearing HENMT: COMMON NORMALS: normocephalic and atraumatic HEAD & SCALP: normocephalic and atraumatic Eye: COMMON NORMALS: conjunctivae normal CONJUNCTIVA: Yes conjunctivae normal Neck/C-Spine: COMMON NORMALS: full ROM and supple Chest: COMMONS NORMALS: normal inspection of the chest Resp: COMMON NORMALS: normal respiratory effort Cardio: COMMON NORMALS: regular rate RATE: regular rate Extremity: NARRATIVE EXTREMITY EXAM: Tenderness noted left lower leg distal pulse sensation intact no signs of compartment syndrome Neuro: COMMON NORMALS: patient oriented x3, moves all extremities and no focal motor deficits Psych: COMMON NORMALS: mental status grossly normal, Normal thought process present and cooperative THOUGHT PROCESS: Normal thought process present Skin: COMMON NORMALS: no rashes or lesions noted and no wounds GENERAL SKIN EXAM: no rashes or lesions noted Course Vital Signs: Vital signs: Vital Signs Pulse Rate 85 02/08/25 19:07 Respiratory Rate 18 02/08/25 19:22 Blood Pressure 108/82 02/08/25 19:07 Pulse Oximetry 97 02/08/25 19:07 Oxygen Delivery Me thod Room Air 02/08/25 19:07 MDM - Extremity (Nontraumatic) Medical Decision Making Patient presents here with her tibial plateau fracture to her left tibia. I did speak to orthopedist along with hospitalist will admit at this time. No other injuries noted from the fall Medical Records I reviewed the patient's medical records. Lab Data Radiology Impressions Knee X-Ray 02/08/25 18:43 IMPRESSION: 1. Depressed lateral tibial plateau fracture. 2. Proximal fibular fracture. Tibia/Fibula X-Ray 02/08/25 18:43 IMPRESSION: 1. Lateral tibial plateau fracture. 2. Proximal fibular fracture. 3. Lipohemarthrosis at the knee. Ankle X-Ray 02/08/25 19:01 IMPRESSION: No acute fracture. All radiology interpretation(s) finalized by discharge Discharge Plan Discharge Patient Disposition: Admitted As Inpatient Clinical Impression: Closed fracture of left tibial plateau Condition: Stable Coding Level of Care Code ED Security Dispatcher for Josefa Mosqueda
[2025-02-08 19:07] VITALS: BP 108/82; PULSE 85; RESP 16; O2SAT 97
[2025-02-08 19:22] VITALS: RESP 18
[2025-02-08] MEDS: morphine 4 mg/mL SDV 1 mL IVP (19:22)
--- NOTE | 2025-02-08 20:00 | CTR_ITS ---
PROCEDURE INFORMATION: Exam: CT Left Lower Extremity Without Contrast, Knee Exam date and time: 02/08/2025 8:08 PM Age: 59 years old Clinical indication: Injury or trauma; Fall; Fracture, traumatic; Nondisplaced; Left; Upper end of tibia TECHNIQUE: Imaging protocol: CT of the left lower extremity without contrast was performed. Exam focused on the knee. Radiation optimization: All CT scans at this facility use at least one of these dose optimization techniques: automated exposure control; mA and/or kV adjustment per patient size (includes targeted exams where dose is matched to clinical indication); or iterative reconstruction. COMPARISON: CR XR knee LT 3V* [id number] 02/08/2025 7:18 PM RADIATION DOSE METRICS: Total DLP (mGy-cm): 353.08 FINDINGS: Bones/joints: There is a comminuted fracture of the proximal tibia. The intact lateral tibial plateau articular surface is depressed along its posterolateral aspect by at least 11 mm. There is comminution and mild displacement of the posterolateral margin of the lateral tibial plateau. The fracture traverses the tibial eminence which is moderately comminuted. There is mild comminution of the medial tibial plateau articular surface with 2-3 mm depression of the posterior 1/3 of the medial tibial plateau articular surface along with a large fragment of the metaphysis. There is a nondisplaced comminuted fracture of the fibular head. Femur and patella are intact. Alignment is normal. There is a large lipohemarthrosis. Soft tissues: Periarticular soft tissues are unremarkable. There is multifocal fat deposition in the soleus muscle. CT/CT knee LT wo con* [id number] IMPRESSION: 1. Intra-articular fracture of the proximal tibia involving the medial and lateral tibial plateau and tibial eminence as above. 2. Comminuted nondisplaced proximal fibular fracture. 3. Lipohemarthrosis.
[2025-02-08 20:48] LABS: Hematocrit 33.0 % (36-47); Hemoglobin 10.60 g/dL (11.27-16.99); Mean Corpuscular HGB Conc 32.1 g/dL (30-55); Mean Corpuscular Hemoglobin 30.2 pg (27-33); Mean Corpuscular Volume 94.0 fl (85-98); Nucleated Red Blood Cells % 0 %; Platelet Count 226 10^3/cmm (157-399); Red Blood Count 3.51 10^6/uL (3.85-5.65); White Blood Count 9.45 10^3/uL (3.29-11.43)
[2025-02-08 21:08] LABS: INR 0.87 (0.8-1.2); Prothrombin Time 12.50 SECONDS (12.1-14.9)
[2025-02-08 21:09] LABS: Alanine Aminotransferase 25 U/L (0-33); Albumin Level 3.9 g/dL (3.5-5.2); Alkaline Phosphatase 115 U/L (35-105); Anion Gap 14.3 (5-19); Aspartate Amino Transferase 26 U/L (0-32); Blood Urea Nitrogen 18 mg/dL (6-20); Calcium 9.2 mg/dL (8.5-10.5); Carbon Dioxide 26 mmol/L (22-29); Chloride 107 mmol/L (98-107); Creatinine Clr Calc Pharmacy 65.9771; Globulin 2.3 g/dL (1.3-4.6); Glucose 108 mg/dL (65-115); Osmolality Calculated 298 mOsm/kg (285-295); Potassium 4.3 mmol/L (3.5-5.1); Sodium 143 mmol/L (136-145); Total Protein 6.2 g/dL (6.6-8.7)
--- NOTE | 2025-02-08 21:31 | PM.HP ---
Providers/Chief Complaint Admitting Physician: Lyndon Badillo MD Primary Care Provider: Daphnie Green MD Chief Complaint: Fall History of Present Illness Elaine Rinaldi is a 59 year old female with a past medical history of rheumatoid arthritis, on chronic prednisone, methotrexate, who presents [facility] for a follow-up. Patient tells me that she was climbing down the stairs, there is for steps, she thinks that she twisted the wrong way and fell down the stairs hitting her left knee. She denies any significant head trauma, loss of consciousness, no nausea, no vomiting, no chest pain, no strokelike symptoms, seizure-like symptoms Review of Systems Card: Denies: chest pain Resp: Denies: dyspnea Neuro: Denies: headache(s) Medications/Allergies Home Medications ?Medication ?Instructions ?Recorded ?Confirmed ?Last Taken ?Type prednisone 20 mg tablet See Rx Instructions PO .COMPLEX 05/31/24 12/26/24 Unknown Rx PRN joint pain flare #30 tabs gabapentin 300 mg capsule 300 mg PO TID #90 caps 07/04/24 12/26/24 Unknown Rx acyclovir 800 mg tablet 800 mg PO BID #180 tabs 08/19/24 12/26/24 Unknown Rx acyclovir 5 % topical ointment 1 applic topical 6XD 7 days #5 09/15/24 12/26/24 Unknown Rx (Zovirax) grams clonazepam 1 mg tablet 1 mg PO BID #60 tabs 09/15/24 12/26/24 Unknown Rx tramadol 50 mg tablet 50 mg PO Q6H PRN pain #120 tabs 10/31/24 12/26/24 Unknown Rx bupropion HCl 150 mg 24 hr tablet, See Rx Instructions .Route 12/06/24 12/26/24 Unknown Rx extended release .COMPLEX #90 tabs omeprazole 40 mg capsule,delayed 40 mg PO BID #180 caps 12/07/24 12/26/24 Unknown Rx release atorvastatin 40 mg tablet See Rx Instructions .Route 12/26/24 12/26/24 Unknown Rx .COMPLEX #90 tabs cyclobenzaprine 10 mg tablet 10 mg PO TID PRN muscle spasm #30 12/26/24 12/26/24 Unknown Rx tabs etanercept 50 mg/mL (1 mL) 50 mg SUBCUT .Q7days #4 mL 12/26/24 12/26/24 Unknown Rx subcutaneous pen injector (Enbrel SureClick) folic acid 1 mg tablet 1 mg PO DAILY #90 tabs 12/26/24 12/26/24 Unknown Rx methotrexate sodium 2.5 mg tablet 2.5 mg PO .once weekly #74 tabs 12/26/24 12/26/24 Unknown Rx prednisone 5 mg tablet 5 mg PO DAILY #90 tabs 12/26/24 12/26/24 Unknown Rx sertraline 100 mg tablet 100 mg PO DAILY #90 tabs 02/05/25 Unknown Rx Allergies Allergy/AdvReac Type Severity Reaction Status Date / Time methocarbamol (From Robaxin) Allergy ADR-Itching Verified 12/26/24 14:42 scopolamine Allergy ADR-Nausea Verified 12/26/24 14:42 PFSH Acute PFSH: Medical History Elevated blood pressure reading without diagnosis of hypertension Cyst of left kidney on CT August 2024; US shows no abnormality Pancreatic cyst med records from [facility], scanned; reviewed; MRI done prior to 08/13 showed bilateral adrenal hyperplasia nad adenomas measuring 2.5cm; 2 hepatic hemangiomas and focal dilation of pain pancreatic duct within the head and several pancreatic cystic lesions measuring 9mm felt to reflect sweqeula of prior pancreatitis vesus cobined main duct and side duct PIMN; f/u MRI 04/12 showed same but pancreatic cyst lesions 9mm--recommendation made for yearly surveillance MRI--CT done at [facility] 09.13 shows no pancreatic cyst Nicotine dependence, cigarettes, uncomplicated Pain management contract signed 08.16.24 for tramadol--has been on t his from prior [place] doc Chronic joint pain seeing rheumatology Encounter for chronic pain management tramadol for chronic joint pain Depression, major Recurrent cold sores High risk medication use Seronegative rheumatoid arthritis of both hands Tendinitis of right shoulder Adrenal tumor MRI from [place] 2021 2.5cm bilateral adrenals; repeat CT [facility] 09/13--same size Right shoulder pain Osteopenia Rheumatoid arthritis Thoracic outlet syndrome Anxiety Hyperlipidemia GERD (gastroesophageal reflux disease) Surgical History Hx of esophagogastroduodenoscopy EGD 05/13 in [place]: erythematous gastropathy; gastric sleeve with very narrow gastric lumen and distal gastric body--consider surgical revision Carpal tunnel syndrome, bilateral surg Bariatric surgery status Hx of colonoscopy 2019? History of surgery on upper extremity had fx; has had 3 surgeries Left arm History of hysterectomy ovaries remaining; due to bleeding History of cholecystectomy H/O gastric sleeve Family History Father Pancreatic cancer Mother Diabetes mellitus type 1 Heart disease Social History Smoking and tobacco/nicotine status: current every day tobacco/nicotine user cigarettes [ Other cigarette details: smoking 2-3 cigarettes per day] Alcohol intake: current Alcohol intake frequency: holidays/special occasions only Alcohol type: wine Substance/Drug Use: never Household members: spouse and other Details: mother in law Marital status: Number of children: 4 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 Current occupational status: disabled 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; 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 Vitals/I&O/Wt Last Vital Signs Pulse 85 02/08/25 19:07 Resp 18 02/08/25 19:22 BP 108/82 02/08/25 19:07 Pulse Ox 97 02/08/25 19:07 O2 Del Method Room Air 02/08/25 19:07 Weight last 48 hrs Weight 81.647 kg Physical Exam Const: COMMON NORMALS: no acute distress and patient oriented x3 Eye: COMMON NORMALS: Equal, round and reactive pupils present Resp: COMMON NORMALS: normal respiratory effort, No retractions, No use of accessory muscles and clear to auscultation bilaterally AUSCULTATION: clear to auscultation bilaterally Cardio: COMMON NORMALS: regular rate, regular rhythm, S1 normal heart sound present and S2 normal heart sound present RATE: regular rate RHYTHM: regular rhythm HEART SOUNDS: S1 normal heart sound present and S2 normal heart sound present GI: COMMON NORMALS: Normal to inspection, nondistended, normoactive bowel sounds present, Soft to palpation and non-tender Extremity: COMMON NORMALS: no calf tenderness and no pedal edema NARRATIVE EXTREMITY EXAM: Left knee in the brace DP PT pulses are palpable Neuro: COMMON NORMALS: patient oriented x3 and CN's II-XII intact bilaterally Psych: COMMON NORMALS: mental status grossly normal Data 02/08/25 20:40 02/08/25 20:40 A&P Assessment and plan 1. Rheumatoid arthritis: 2. H/O gastric sleeve: 3. Tibial plateau fracture, left: 4. Closed fibular fracture: 5. Fall: Plan: Fall CT scan showing CT/CT knee LT wo con* [id number] IMPRESSION: 1. Intra-articular fracture of the proximal tibia involving the medial and lateral tibial plateau and tibial eminence as above. 2. Comminuted nondisplaced proximal fibular fracture. 3. Lipohemarthrosis. Plan - N.p.o. at midnight - Plan for surgical invention tomorrow - Dilaudid for pain - She is on chronic prednisone 5 mg p.o. daily, will have to give her stress dose steroids before her surgery in the morning, she does tell me that she has not taken the prednisone in the last 3 days - Await urinalysis - CT head - Full code - SCDs for DVT prophylaxis, Lovenox on hold as her there are plans on surgical intervention PDMP PDMP Reviewed: Not Reviewed Attestations Medical Necessity Statement*: Patient requires hospitalization, inpatient, greater than 2 midnights, for fall, tibial plateau fracture, fibula fracture Diagnoses Rheumatoid arthritis M06.9 H/O gastric sleeve Z90.3 Tibial plateau fracture, left S82.142A Closed fibular fracture S82.409A Fall W19.XXXA
[2025-02-08 21:55] VITALS: BP 102/69; O2SAT 96
--- NOTE | 2025-02-08 22:16 | CTR_ITS ---
PROCEDURE INFORMATION: Exam: CT Head Without Contrast Exam date and time: 02/08/2025 11:01 PM Age: 59 years old Clinical indication: Injury or trauma; Fall; Other: Memory loss TECHNIQUE: Imaging protocol: Computed tomography of the head without contrast. Radiation optimization: All CT scans at this facility use at least one of these dose optimization techniques: automated exposure control; mA and/or kV adjustment per patient size (includes targeted exams where dose is matched to clinical indication); or iterative reconstruction. COMPARISON: MR cervical spin wo con* [id number] 09/14/2024 8:58 AM RADIATION DOSE METRICS: Total DLP (mGy-cm): 1332.82 FINDINGS: Brain: There are moderate periventricular and subcortical lucencies consistent with chronic microvascular ischemic changes.The carballo-white differentiation is maintained. No hemorrhage. No edema. Cerebral ventricles: No ventriculomegaly. Paranasal sinuses: Visualized sinuses are unremarkable. No fluid levels. Mastoid air cells: Visualized mastoid air cells are well aerated. Bones: Unremarkable. No acute fracture. Soft tissues: Unremarkable. CT/CT head wo con* [id number] IMPRESSION: No acute intracranial abnormality. Chronic microvascular ischemic changes.
[2025-02-08 22:18] LABS: Procalcitonin 0.04 ng/mL (0-0.5)
[2025-02-08 22:19] VITALS: BP 99/60; O2SAT 96
[2025-02-08] MEDS: pantoprazole 40 mg SDV IVP (22:30)
[2025-02-08 23:21] LABS: Cholesterol 184 mg/dL (0-200); HDL Cholesterol 58 mg/dL (60-100); Thyroid Stimulating Hormone 2.38 uIU/mL (0.27-4.20); Triglycerides 141 mg/dL (0-150)
[2025-02-08] MEDS: HYDROmorphone 0.5 MG/0.5 ML INJ 1 MG IVP (23:47)
[2025-02-08 23:52] LABS: Estmated Average Glucose 111; Hemoglobin A1C 5.5 % (4.0-6.0)
[2025-02-09] VITALS (12 sets, daily range): BP systolic 104–130; BP diastolic 58–77; PULSE 81–101; RESP 15–21; TEMP 36.8–36.9; O2SAT 90–97
[2025-02-09] MEDS: ondansetron 2 mg/ML SDV 2 mL 4 MG IVP (01:52)
[2025-02-09] MEDS: HYDROmorphone 0.5 MG/0.5 ML INJ 1 MG IVP ×5 (04:18→21:01)
[2025-02-09 05:02] LABS: Glucose Urine UA Negative (Normal); Nitrate Urine Negative (Negative); Specific Gravity, Urine 1.025 (1.005-1.030)
[2025-02-09 05:07] LABS: Add Urine Microscopic? YES
[2025-02-09 05:17] LABS: Hematocrit 33.2 % (36-47); Hemoglobin 10.60 g/dL (11.27-16.99); Mean Corpuscular HGB Conc 31.9 g/dL (30-55); Mean Corpuscular Hemoglobin 30.2 pg (27-33); Mean Corpuscular Volume 94.6 fl (85-98); Nucleated Red Blood Cells % 0 %; Platelet Count 213 10^3/cmm (157-399); Red Blood Count 3.51 10^6/uL (3.85-5.65); White Blood Count 10.35 10^3/uL (3.29-11.43)
[2025-02-09 05:35] LABS: Alanine Aminotransferase 27 U/L (0-33); Albumin Level 3.9 g/dL (3.5-5.2); Alkaline Phosphatase 120 U/L (35-105); Anion Gap 12.9 (5-19); Aspartate Amino Transferase 45 U/L (0-32); Blood Urea Nitrogen 17 mg/dL (6-20); Calcium 8.8 mg/dL (8.5-10.5); Carbon Dioxide 26 mmol/L (22-29); Chloride 105 mmol/L (98-107); Creatinine Clr Calc Pharmacy 74.2242; Globulin 2.4 g/dL (1.3-4.6); Glucose 130 mg/dL (65-115); Osmolality Calculated 293 mOsm/kg (285-295); Potassium 3.9 mmol/L (3.5-5.1); Sodium 140 mmol/L (136-145); Total Protein 6.3 g/dL (6.6-8.7)
--- NOTE | 2025-02-09 11:48 | P.PN_ITS ---
Subjective 2 Subjective: The patient was seen in the morning, she was having mild to moderate pain on her left leg due to fracture. On Justin's catheter. Awaited Ortho plan for further management Vitals/I&O/Wt Last Vital Signs Temp 98.5 F 02/09/25 11:11 Pulse 91 02/09/25 11:11 Resp 17 02/09/25 11:11 BP 118/58 02/09/25 11:11 Pulse Ox 94 02/09/25 11:11 O2 Del Method Room Air 02/09/25 11:11 02/08/25 02/09/25 02/09/25 22:59 06:59 14:59 Intake Total 250 / 250 Balance 250 / 250 Weight last 48 hrs Weight 90.86 kg Weight 81.647 kg Physical Exam 2 Narrative: General: Alert oriented x3, patient seen in mild distress due to left leg pain due to fracture HEENT: Normocephalic, atraumatic, EOMI, breathing at room air Cardio: Regular rate rhythm, normal S1-S2, no murmurs rubs gallops, JVD normal Respiratory: Good bilateral air entry, no wheezes no rhonchi appreciated GI: Abdomen soft, nontender, nondistended, normoactive bowel sounds present all 4 quadrants, Neuro: Cranial nerves II to XII intact, strength 5/5, sensation 5/5, no gross neurological deficit Behavior: Appropriate and cooperative Extremities: Having left leg pain stabilized with support since having Closed fibular fracture Skin: Unremarkable exam Urinary Catheter Management: Justin: Cath Placed During This Visit: yes Reason for Continuing Indwelling Catheter: Perioperative Use in Selected Surgeries Urinary Catheter Date of Insertion: 02/09/25 Urinary Catheter Time of Insertion: 04:50 Data 02/09/25 05:11 02/09/25 05:11 A&P Assessment and plan 1. Closed fibular fracture: 2. Fall: 3. Rheumatoid arthritis: 4. H/O gastric sleeve: 5. Tibial plateau fracture, left: Plan: Fall with intra-articular fracture of the left proximal tibia from a fall, likely underlying osteoporosis considering she is on steroids - Orthopedic consulted and for surgery tomorrow - Plan for surgical invention tomorrow - Dilaudid and morphine as per the pain scale - OT/PT eval and rehab - She is on chronic prednisone 5 mg p.o. daily from the last 2 to 3 years, however did not take from the last 3 days and may need to give stress dose steroids before her surgery in the morning to avoid adrenal crisis, based on the morning cortisol levels since her dose of steroids in intermediate category of adrenal suppression. - CT head - Full code - levonox today and hold tomorrow for surgery - FU with the ortho plan, already onboard PDMP PDMP Reviewed: Not Reviewed Attestations 2 Medical Necessity Statement*: The patient will stay in the hospital for management of left proximal tibial fracture from fall Time Spent in Patient Care: 16 - 35 minutes (>than 50% of time sp ent in counselling and/or direct pt care on unit) . Other Attestations: Patient condition has been discussed at length with the patient/family, I have independently reviewed the chart labs imaging and diagnostics and EKG. the goals of care and code status with the patient/family/NOK/legal ambulatory service representative, and documented accordingly. The patient/family has been informed about the current condition and further plan of care. Agreed with the plan of care and understood without any language barrier. This documentation was created by [employer] fiber product cutting machine operator software. Every effort was made to ensure accuracy of fiber product cutting machine operator. Any obvious errors or omissions should be clarified with the author of the document. Coding Level of Care Code 86859 Diagnoses Closed fibular fracture S82.409A Fall W19.XXXA Rheumatoid arthritis M06.9 H/O gastric sleeve Z90.3 Tibial plateau fracture, left S82.142A
[2025-02-09] MEDS: hydrocortisone 100 mg/2 mL SDV 50 MG IVP (12:30)
[2025-02-09] MEDS: oxyCODONE 5 mg IR Tab/Cap PO (14:29)
--- NOTE | 2025-02-09 16:00 | PM.CONSULT ---
Providers/Reason For Consult Consulting Physician/Specialty*: Javier Powell MD/orthopedic surgery Reason for Consult*: Posterior tibial plateau fracture both medial and lateral left knee Attending Physician: Lyndon Badillo MD Primary Care Provider: Daphnie Green MD History of Present Illness History of Present Illness Elaine Rinaldi is a 59 year old female with a history of rheumatoid arthritis. States that she was going down a flight of stairs the other day lost her balance and fell striking her left knee. She had pain and inability to bear weight. She was seen in the emergency room at [facility]. X-rays demonstrated a tibial plateau fracture primarily on the lateral side. After contacting me for consultation I requested a CT scan to evaluate the fracture, and this was found to show a large fragment of the medial posterior plateau of the tibia that was displaced and comminution and collapse of the lateral tibial plateau posteriorly. Patient was admitted through the hospitalist service. She is placed in a knee immobilizer. Ice and elevation as needed. Upon interviewing her for the first time she is in quite a bit of pain. In minimal amount of pain medicine has been given. Her knee is moderately swollen but plate drying machine tender to palpation otherwise neurovascular intact distally. Medications/Allergies Home Medications ?Medication ?Instructions ?Recorded ?Confirmed ?Last Taken ?Type gabapentin 300 mg capsule 300 mg PO TID #90 caps 07/04/24 02/09/25 02/08/25 Rx acyclovir 800 mg tablet 800 mg PO BID #180 tabs 08/19/24 02/09/25 Unknown Rx acyclovir 5 % topical ointment 1 applic topical 6XD 7 days #5 09/15/24 02/09/25 Unknown Rx (Zovirax) grams clonazepam 1 mg tablet 1 mg PO BID #60 tabs 09/15/24 02/09/25 02/08/25 Rx tramadol 50 mg tablet 50 mg PO Q6H PRN pain #120 tabs 10/31/24 02/09/25 02/08/25 Rx bupropion HCl 150 mg 24 hr tablet, See Rx Instructions .Route 12/06/24 02/09/25 02/08/25 Rx extended release .COMPLEX #90 tabs omeprazole 40 mg capsule,delayed 40 mg PO BID #180 caps 12/07/24 02/09/25 02/08/25 Rx release atorvastatin 40 mg tablet See Rx Instructions .Route 12/26/24 02/09/25 02/08/25 Rx .COMPLEX #90 tabs cyclobenzaprine 10 mg tablet 10 mg PO TID PRN muscle spasm #30 12/26/24 02/09/25 02/08/25 Rx tabs etanercept 50 mg/mL (1 mL) 50 mg SUBCUT .Q7days #4 mL 12/26/24 02/09/25 02/02/25 Rx subcutaneous pen injector (Enbrel SureClick) folic acid 1 mg tablet 1 mg PO DAILY #90 tabs 12/26/24 02/09/25 02/08/25 Rx methotrexate sodium 2.5 mg tablet 2.5 mg PO .once weekly #74 tabs 12/26/24 02/09/25 02/05/25 Rx prednisone 5 mg tablet 5 mg PO DAILY #90 tabs 12/26/24 02/09/25 02/08/25 Rx sertraline 100 mg tablet 100 mg PO DAILY #90 tabs 02/05/25 02/09/25 02/08/25 Rx Allergies Allergy/AdvReac Type Severity Reaction Status Date / Time methocarbamol (From Robaxin) Allergy ADR-Itching Verified 12/26/24 14:42 scopolamine Allergy ADR-Nausea Verified 12/26/24 14:42 Current Medications Generic Name Dose Route Start Last Admin Trade Name Freq PRN Reason Stop Dose Admin Acyclovir 800 mg 02/09/25 09:00 02/09/25 11:08 Acyclovir 800 Mg Tablet PO Not Given BID VERONIQUE Atorvastatin Calcium 40 mg 02/09/25 09:00 02/09/25 11:09 Atorvastatin 40 Mg Tablet PO Not Given DAILY VERONIQUE Bupropion HCl 150 mg 02/09/25 09:00 02/09/25 11:09 Bupropion Xl (24 Hr) 150 Mg Tablet PO Not Given DAILY VERONIQUE Clonazepam 1 mg 02/09/25 09:00 02/09/25 11:09 Clonazepam 1 Mg Tablet PO Not Given BID VERONIQUE Folic Acid 1 mg 02/09/25 09:00 02/09/25 11:09 Folic Acid 1 Mg Tablet PO Not Given DAILY VERONIQUE Gabapentin 300 mg 02/09/25 09:00 02/09/25 14:29 Gabapentin 300 Mg Capsule PO 300 mg TID VERONIQUE Administration Hydromorphone HCl 1 mg 02/09/25 04:12 02/09/25 12:20 Hydromorphone 0.5 Mg/0.5 Ml Inj IVP 1 mg Q4H PRN Administration PAIN Sodium Chloride 1,000 mls @ 75 mls/hr 02/08/25 22:16 02/09/25 12:24 Sodium Chloride 0.9% IV 75 mls/hr .[id number] VERONIQUE Administration Ondansetron HCl 4 mg 02/08/25 22:16 02/09/25 01:52 Ondansetron 2 Mg/Ml Sdv 2 Ml IVP 4 mg Q8H PRN Administration vomiting, or N/V if npo Oxycodone HCl 5 mg 02/09/25 14:17 02/09/25 14:29 Oxycodone 5 Mg Ir Tab/Cap PO 5 mg Q6H PRN Administration MODERATE PAIN Pantoprazole Sodium 40 mg 02/08/25 22:16 02/08/25 22:30 Pantoprazole 40 Mg Sdv IVP 40 mg Q24H VERONIQUE Administration Sertraline HCl 100 mg 02/09/25 09:00 02/09/25 11:09 Sertraline 100 Mg Tablet PO Not Given DAILY VERONIQUE PFSH Acute PFSH: Medical History (Updated 02/09/25 @ 16:05 by Javier Powell MD) Elevated blood pressure reading without diagnosis of hypertension Cyst of left kidney on CT August 2024; US shows no abnormality Pancreatic cyst med records from [facility] recevied, scanned; reviewed; MRI done prior to 08/13 showed bilateral adrenal hyperplasia nad adenomas measuring 2.5cm; 2 hepatic hemangiomas and focal dilation of pain pancreatic duct within the head and several pancreatic cystic lesions measuring 9mm felt to reflect sweqeula of prior pancreatitis vesus cobined main duct and side duct PIMN; f/u MRI 04/12 showed same but pancreatic cyst lesions 9mm--recommendation made for yearly surveillance MRI--CT done at [facility] 09.13 shows no pancreatic cyst Nicotine dependence, cigarettes, uncomplicated Pain management contract signed 08.16.24 for tramadol--has been on t his from prior [place] doc Chronic joint pain seeing rheumatology Encounter for chronic pain management tramadol for chronic joint pain Depression, major Recurrent cold sores High risk medication use Seronegative rheumatoid arthritis of both hands Tendinitis of right shoulder Adrenal tumor MRI from [place] 2021 2.5cm bilateral adrenals; repeat CT [facility] 09/13--same size Right shoulder pain Osteopenia Rheumatoid arthritis Thoracic outlet syndrome Anxiety Hyperlipidemia GERD (gastroesophageal reflux disease) Surgical History Hx of esophagogastroduodenoscopy EGD 05/13 in [place]: erythematous gastropathy; gastric sleeve with very narrow gastric lumen and distal gastric body--consider surgical revision Carpal tunnel syndrome, bilateral surg Bariatric surgery status Hx of colonoscopy 2019? History of surgery on upper extremity had fx; has had 3 surgeries Left arm History of hysterectomy ovaries remaining; due to bleeding History of cholecystectomy H/O gastric sleeve Family History Father Pancreatic cancer Mother Diabetes mellitus type 1 Heart disease Social History Smoking and tobacco/nicotine status: current every day tobacco/nicotine user cigarettes [ Other cigarette details: smoking 2-3 cigarettes per day] Alcohol intake: current Alcohol intake frequency: holidays/special occasions only Alcohol type: wine Substance/Drug Use: never Household members: spouse and other Details: mother in law Marital status: Number of children: 4 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 She is neurovasc intact distally with good sensation and motor function of her foot. She has swelling about the knee and tenderness by palpation over the lateral tibial plateau region. Urinary Catheter Management: Justin: Cath Placed During This Visit: yes Reason for Continuing Indwelling Catheter: Perioperative Use in Selected Surgeries Urinary Catheter Date of Insertion: 02/09/25 Urinary Catheter Time of Insertion: 04:50 Data 02/09/25 05:11 02/09/25 05:11 Other data: As stated above in the HPI CT scan demonstrates comminuted collapse posterior lateral tibial plateau fracture and 1 large fragment broken and slightly displaced off the medial posterior plateau. A&P Assessment and plan 1. Closed fracture of left tibial plateau, initial encounter: Patient has a collapsed posterior lateral tibial plateau fracture on the left with a large fragment off the medial aspect of the posterior plateau left knee also. Plan: Plan at this time is for open reduction internal fixation of the tibial plateau fracture. I have spent significant mount time discussing it with she and her significant other. I have demonstrated that she has collapsed to her posterior lateral tibial plateau and this will need to be built back up with bone graft and fixed together with plate and screw fixation. As for the large posterior medial fragment I am hoping to skewer this with a partially-threaded cannulated screw and capture this back into place. I may need to place an arthroscope within the knee to determine how well we have reduced articular surface. All risk benefits treatment alternatives were discussed with her. We have indicated that where he is trying to save as much bone mass as we can for future total knee arthroplasty if necessary. At this time I do not believe there is enough bone on the posterior lateral aspect of the tibia in order to do a total knee arthroplasty at this time. PDMP PDMP Reviewed: Not Reviewed Coding Level of Care Code Critical Care >/= 30 minutes Diagnoses Closed fracture of left tibial plateau, initial encounter S82.142A Encounter type: initial encounter Fracture type: closed Laterality: left
--- NOTE | 2025-02-09 16:50 | P.PN_ITS ---
Subjective 2 Subjective: Patient admitted for tibial plateau fracture on the left. I originally saw her this morning. Just checking this evening to see if patient has any further questions about surgical intervention tomorrow. Patient states pain is under better control but still painful. Have reassured her will take some time for the pain to resolve. She has no further questions. Vitals/I&O/Wt Last Vital Signs Temp 98.2 F 02/09/25 16:00 Pulse 101 H 02/09/25 16:00 Resp 18 02/09/25 16:00 BP 114/74 02/09/25 16:00 Pulse Ox 93 02/09/25 16:00 O2 Del Method Room Air 02/09/25 16:00 02/09/25 02/09/25 02/09/25 06:59 14:59 22:59 Intake Total 250 / 250 1020 / 1020 Balance 250 / 250 1020 / 1020 Weight last 48 hrs Weight 200 lb 5 oz Weight 180 lb Physical Exam 2 Narrative: Exam of her left knee is unchanged. Patient still in knee immobilizer with ice packs on it Urinary Catheter Management: Justin: Cath Placed During This Visit: yes Reason for Continuing Indwelling Catheter: Perioperative Use in Selected Surgeries Urinary Catheter Date of Insertion: 02/09/25 Urinary Catheter Time of Insertion: 04:50 Data 02/09/25 05:11 02/09/25 05:11 A&P PDMP PDMP Reviewed: Not Reviewed Attestations 2 Medical Necessity Statement*: Patient in need of surgical intervention for open reduction internal fixation left tibial plateau fracture Coding Level of Care Code Critical Care >/= 30 minutes
[2025-02-09] MEDS: pantoprazole 40 mg SDV IVP (20:59)
[2025-02-10] VITALS (24 sets, daily range): BP systolic 94–154; BP diastolic 57–116; PULSE 80–102; RESP 12–18; TEMP 36.3–37.1; O2SAT 90–98
[2025-02-10] MEDS: HYDROmorphone 0.5 MG/0.5 ML INJ 1 MG IVP ×2 (03:15→09:15)
[2025-02-10] MEDS: ondansetron 2 mg/ML SDV 2 mL 4 MG IVP (03:18)
[2025-02-10 05:21] LABS: Hematocrit 28.6 % (36-47); Hemoglobin 9.10 g/dL (11.27-16.99); Mean Corpuscular HGB Conc 31.8 g/dL (30-55); Mean Corpuscular Hemoglobin 30.8 pg (27-33); Mean Corpuscular Volume 96.9 fl (85-98); Nucleated Red Blood Cells % 0 %; Platelet Count 190 10^3/cmm (157-399); Red Blood Count 2.95 10^6/uL (3.85-5.65); White Blood Count 11.05 10^3/uL (3.29-11.43)
[2025-02-10 05:34] LABS: Alanine Aminotransferase 29 U/L (0-33); Albumin Level 3.4 g/dL (3.5-5.2); Alkaline Phosphatase 102 U/L (35-105); Anion Gap 11.6 (5-19); Aspartate Amino Transferase 31 U/L (0-32); Blood Urea Nitrogen 19 mg/dL (6-20); Calcium 8.2 mg/dL (8.5-10.5); Carbon Dioxide 25 mmol/L (22-29); Chloride 108 mmol/L (98-107); Creatinine Clr Calc Pharmacy 78.2310; Globulin 2.3 g/dL (1.3-4.6); Glucose 102 mg/dL (65-115); Osmolality Calculated 294 mOsm/kg (285-295); Potassium 3.6 mmol/L (3.5-5.1); Sodium 141 mmol/L (136-145); Total Protein 5.7 g/dL (6.6-8.7)
[2025-02-10] MEDS: oxyCODONE 5 mg IR Tab/Cap PO (06:41)
--- NOTE | 2025-02-10 08:21 | P.PN_ITS ---
Subjective 2 Subjective: Patient admitted for tibial plateau fracture on the left. And having history of rheumatoid arthritis. For surgery today. The patient is on etanercept at home and takes subcut injection by herself that she is taking weekly. To continue to monitor patient care and medications and to counseled on emphasis of medications to be taken when supervised under nursing care. Vitals/I&O/Wt Last Vital Signs Temp 98.6 F 02/10/25 07:36 Pulse 83 02/10/25 07:36 Resp 17 02/10/25 07:36 BP 110/74 02/10/25 07:36 Pulse Ox 93 02/10/25 07:36 O2 Del Method Room Air 02/10/25 07:36 02/09/25 02/10/25 02/10/25 22:59 06:59 14:59 Intake Total 50 / 1070 911.25 / 1981.25 Output Total 300 / 300 Balance 50 / 1070 611.25 / 1681.25 Weight last 48 hrs Weight 89.925 kg Weight 90.86 kg Weight 81.647 kg Physical Exam 2 Narrative: General: Alert oriented x3, patient seen in mild distress due to left leg pain due to fracture HEENT: Normocephalic, atraumatic, EOMI, breathing at room air Cardio: Regular rate rhythm, normal S1-S2, no murmurs rubs gallops, JVD normal Respiratory: Good bilateral air entry, no wheezes no rhonchi appreciated GI: Abdomen soft, nontender, nondistended, normoactive bowel sounds present all 4 quadrants, Neuro: Cranial nerves II to XII intact, strength 5/5, sensation 5/5, no gross neurological deficit Behavior: Appropriate and cooperative Extremities: Having left leg pain stabilized with support since having Closed fibular fracture Skin: Unremarkable exam Urinary Catheter Management: Justin: Cath Placed During This Visit: yes Reason for Continuing Indwelling Catheter: Perioperative Use in Selected Surgeries Urinary Catheter Date of Insertion: 02/09/25 Urinary Catheter Time of Insertion: 04:50 Data 02/10/25 05:06 02/10/25 05:06 A&P Assessment and plan 1. Closed fibular fracture: 2. Fall: 3. Rheumatoid arthritis: 4. H/O gastric sleeve: 5. Tibial plateau fracture, left: Plan: Fall with intra-articular fracture of the left proximal tibia from a fall, likely underlying osteoporosis considering she is on steroids - Orthopedic consulted and for surgery today - Plan for surgical invention tomorrow - Dilaudid and morphine as per the pain scale - OT/PT eval and rehab - She is on chronic prednisone 5 mg p.o. daily from the last 2 to 3 years, however did not take from the last 3 days, the patient random cortisol and marine engineer cpvec cortisol was in normal range however with intermediate response and received hydrocortisone on the day of admission therefore considering this as an intermediate response the patient provided 50 mg hydrocortisone as a stress dose as per the guidelines before surgery and will continue with 25 mg hydrocortisone every 8 hourly for 24 hours postsurgery to avoid any adrenal crisis. -Adequate analgesia to continue -Continue her home dose of prednisone - Follow-up with orthopedic plan - Full code - VTE prophylaxis; enoxaparin postsurgery based on labs - Diet; cardiac diet to resume postop if no contraindication PDMP PDMP Reviewed: Not Reviewed Attestations 2 Medical Necessity Statement*: The patient will stay in the hospital for management of left proximal tibial fracture from fall Time Spent in Patient Care: 16 - 35 minutes (>than 50% of time sp ent in counselling and/or direct pt care on unit) . Other Attestations: Patient condition has been discussed at length with the patient/family, I have independently reviewed the chart labs imaging and diagnostics and EKG. the goals of care and code status with the patient/family/NOK/legal loss control representative, and documented accordingly. The patient/family has been informed about the current condition and further plan of care. Agreed with the plan of care and understood without any language barrier. This documentation was created by [employer] shoemaker custom software. Every effort was made to ensure accuracy of shoemaker custom. Any obvious errors or omissions should be clarified with the author of the document. Coding Level of Care Code Acute Code for Chg Fwd Diagnoses Closed fibular fracture S82.409A Fall W19.XXXA Rheumatoid arthritis M06.9 H/O gastric sleeve Z90.3 Tibial plateau fracture, left S82.142A
[2025-02-10] MEDS: hydrocortisone 100 mg/2 mL SDV 50 MG IVP (09:02)
[2025-02-10] MEDS: morphine 4 mg/mL SDV 1 mL 1 MG IVP (12:23)
--- NOTE | 2025-02-10 12:50 | PC.NURSE ---
pt off unit to the or at approx. 1246
--- NOTE | 2025-02-10 12:52 | W.PM.OPSUD ---
Surgery/Procedure H&P Update DATE OF PROCEDURE: February 10, 2025 DATE H&P PERFORMED: 02/08/25 PREOP DIAGNOSIS: Left tibial plateau fracture PRIMARY INDICATION FOR PROCEDURE: Fracture left tibial plateau PLANNED PROCEDURE: Operation Date: 02/10/25 14:40 Proposed Procedures p ORIF Tibial Plateau(Left) - Javier Powell MD
--- NOTE | 2025-02-10 13:05 | ANES.PREANE2 ---
Pre-Anesthetic Assessment Height/Weight: Height 1.55 m Weight 89.925 kg Temp Pulse Resp BP Pulse Ox O2 Del Method 98.7 F 96 18 105/70 91 Room Air 02/10/25 12:58 02/10/25 12:58 02/10/25 12:58 02/10/25 12:58 02/10/25 12:58 02/10/25 12:58 Preop Diagnosis: Left tibial plateau fracture Operation Date: 02/10/25 14:40 Proposed Procedures p ORIF Tibial Plateau(Left) - Javier Powell MD Familial anesthetic complications: None Was Beta Juan taken within 24 hours: N/A Was Clonidine taken within 24 hours: N/A Last intake: Intake Last Liquid Date 02/09/25 Last Liquid Time 22:00 Last Solid Date 02/09/25 Last Solid Time 22:00 Social No alcohol and No tobacco Exam alert, oriented x 3, clear to auscultation bilaterally and regular rate & rhythm Airway Mallampati: Class II Dentition: full CV/HEM Hypertension GI Gastroesophageal Reflux Disease Metabolic Hyperlipidemia [facility] Rheumatoid Arthritis Anesthetic Plan ASA status: 3 Anesthesia: General and Regional (specify below) Risk of > 500 ml blood loss (7ml/kg in children): No Medications/Allergies Home Medications ?Medication ?Instructions ?Recorded ?Confirmed ?Last Taken ?Type gabapentin 300 mg capsule 300 mg PO TID #90 caps 07/04/24 02/09/25 02/08/25 Rx acyclovir 800 mg tablet 800 mg PO BID #180 tabs 08/19/24 02/09/25 Unknown Rx acyclovir 5 % topical ointment 1 applic topical 6XD 7 days #5 09/15/24 02/09/25 Unknown Rx (Zovirax) grams clonazepam 1 mg tablet 1 mg PO BID #60 tabs 09/15/24 02/09/25 02/08/25 Rx tramadol 50 mg tablet 50 mg PO Q6H PRN pain #120 tabs 10/31/24 02/09/25 02/08/25 Rx bupropion HCl 150 mg 24 hr tablet, See Rx Instructions .Route 12/06/24 02/09/25 02/08/25 Rx extended release .COMPLEX #90 tabs omeprazole 40 mg capsule,delayed 40 mg PO BID #180 caps 12/07/24 02/09/25 02/08/25 Rx release atorvastatin 40 mg tablet See Rx Instructions .Route 12/26/24 02/09/25 02/08/25 Rx .COMPLEX #90 tabs cyclobenzaprine 10 mg tablet 10 mg PO TID PRN muscle spasm #30 12/26/24 02/09/25 02/08/25 Rx tabs etanercept 50 mg/mL (1 mL) 50 mg SUBCUT .Q7days #4 mL 12/26/24 02/09/25 02/02/25 Rx subcutaneous pen injector (Enbrel SureClick) folic acid 1 mg tablet 1 mg PO DAILY #90 tabs 12/26/24 02/09/25 02/08/25 Rx methotrexate sodium 2.5 mg tablet 2.5 mg PO .once weekly #74 tabs 12/26/24 02/09/25 02/05/25 Rx prednisone 5 mg tablet 5 mg PO DAILY #90 tabs 12/26/24 02/09/25 02/08/25 Rx sertraline 100 mg tablet 100 mg PO DAILY #90 tabs 02/05/25 02/09/25 02/08/25 Rx Allergies Allergy/AdvReac Type Severity Reaction Status Date / Time methocarbamol (From Robaxin) Allergy ADR-Itching Verified 12/26/24 14:42 scopolamine Allergy ADR-Nausea Verified 12/26/24 14:42 Current Medications Generic Name Dose Route Start Last Admin Trade Name Freq PRN Reason Stop Dose Admin Acyclovir 800 mg 02/09/25 09:00 02/10/25 09:05 Acyclovir 800 Mg Tablet PO Not Given On Hold: 02/10/25 12:49 BID VERONIQUE Comment: Order held by Process Transfer Atorvastatin Calcium 40 mg 02/09/25 09:00 02/10/25 09:01 Atorvastatin 40 Mg Tablet PO 40 mg On Hold: 02/10/25 12:49 DAILY VERONIQUE Administration Comment: Order held by Process Transfer Bupropion HCl 150 mg 02/09/25 09:00 02/10/25 09:01 Bupropion Xl (24 Hr) 150 Mg Tablet PO 150 mg On Hold: 02/10/25 12:49 DAILY VERONIQUE Administration Comment: Order held by Process Transfer Clonazepam 1 mg 02/09/25 09:00 02/10/25 09:01 Clonazepam 1 Mg Tablet PO 1 mg On Hold: 02/10/25 12:49 BID VERONIQUE Administration Comment: Order held by Process Transfer Folic Acid 1 mg 02/09/25 09:00 02/10/25 09:01 Folic Acid 1 Mg Tablet PO 1 mg On Hold: 02/10/25 12:49 DAILY VERONIQUE Administration Comment: Order held by Process Transfer Gabapentin 300 mg 02/09/25 09:00 02/10/25 09:01 Gabapentin 300 Mg Capsule PO 300 mg On Hold: 02/10/25 12:49 TID VERONIQUE Administration Comment: Order held by Process Transfer Hydromorphone HCl 1 mg 02/09/25 04:12 02/10/25 09:15 Hydromorphone 0.5 Mg/0.5 Ml Inj IVP 1 mg On Hold: 02/10/25 12:49 Q4H PRN Administration Comment: Order held by Process PAIN Transfer Sodium Chloride 1,000 mls @ 75 mls/hr 02/08/25 22:16 02/10/25 00:33 Sodium Chloride 0.9% IV 75 mls/hr On Hold: 02/10/25 12:49 .[id number] VERONIQUE Administration Comment: Order held by Process Transfer Morphine Sulfate 1 mg 02/09/25 11:48 02/10/25 12:23 Morphine 4 Mg/Ml Sdv 1 Ml IVP 1 mg On Hold: 02/10/25 12:49 Q2H PRN Administration Comment: Order held by Process SEVERE PAIN Transfer Ondansetron HCl 4 mg 02/08/25 22:16 02/10/25 03:18 Ondansetron 2 Mg/Ml Sdv 2 Ml IVP 4 mg On Hold: 02/10/25 12:49 Q8H PRN Administration Comment: Order held by Process vomiting, or N/V if npo Transfer Oxycodone HCl 5 mg 02/09/25 14:17 02/10/25 06:41 Oxycodone 5 Mg Ir Tab/Cap PO 5 mg On Hold: 02/10/25 12:49 Q6H PRN Administration Comment: Order held by Process MODERATE PAIN Transfer Prednisone 5 mg 02/10/25 09:00 02/10/25 09:01 Prednisone 5 Mg Tablet PO 5 mg On Hold: 02/10/25 12:49 DAILY VERONIQUE Administration Comment: Order held by Process Transfer Sertraline HCl 100 mg 02/09/25 09:00 02/10/25 09:02 Sertraline 100 Mg Tablet PO 100 mg On Hold: 02/10/25 12:49 DAILY VERONIQUE Administration Comment: Order held by Process Transfer [facility] Anesthesia Medical History (Updated 02/09/25 @ 16:05 by Javier Powell MD) Elevated blood pressure reading without diagnosis of hypertension Cyst of left kidney on CT August 2024; US shows no abnormality Pancreatic cyst [facility]; reviewed; MRI done prior to 08/13 showed bilateral adrenal hyperplasia nad adenomas measuring 2.5cm; 2 hepatic hemangiomas and focal dilation of pain pancreatic duct within the head and several pancreatic cystic lesions measuring 9mm felt to reflect sweqeula of prior pancreatitis vesus cobined main duct and side duct PIMN; f/u MRI 04/12 showed same but pancreatic cyst lesions 9mm--recommendation made for yearly surveillance MRI--CT done at [facility] . shows no pancreatic cyst Nicotine dependence, cigarettes, uncomplicated Pain management contract signed 08.16.24 for tramadol--has been on t his from prior [place] doc Chronic joint pain seeing rheumatology Encounter for chronic pain management tramadol for chronic joint pain Depression, major Recurrent cold sores High risk medication use Seronegative rheumatoid arthritis of both hands Tendinitis of right shoulder Adrenal tumor MRI from [place] 2021 2.5cm bilateral adrenals; repeat CT [facility] 09/13--same size Right shoulder pain Osteopenia Rheumatoid arthritis Thoracic outlet syndrome Anxiety Hyperlipidemia GERD (gastroesophageal reflux disease) Surgical History Hx of esophagogastroduodenoscopy EGD 05/13 in [place]: erythematous gastropathy; gastric sleeve with very narrow gastric lumen and distal gastric body--consider surgical revision Carpal tunnel syndrome, bilateral surg Bariatric surgery status Hx of colonoscopy 2019? History of surgery on upper extremity had fx; has had 3 surgeries Left arm History of hysterectomy ovaries remaining; due to bleeding History of cholecystectomy H/O gastric sleeve Family History Father Pancreatic cancer Mother Diabetes mellitus type 1 Heart disease Social History Smoking and tobacco/nicotine status: current every day tobacco/nicotine user cigarettes [ Other cigarette details: smoking 2-3 cigarettes per day] Alcohol intake: current Alcohol intake frequency: holidays/special occasions only Alcohol type: wine Substance/Drug Use: never Household members: spouse and other Details: mother in law Marital status: Number of children: 4 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 Current occupational status: disabled 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; 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 Data Anesthesia 02/10/25 05:06 02/10/25 05:06 Short CBC 02/08/25 02/09/25 02/10/25 Range/Units 20:40 05:11 05:06 WBC 9.45 10.35 11.05 (3.29-11.43) 10^3/uL Hgb 10.60 L 10.60 L 9.10 L (11.27-16.99) g/dL Hct 33.0 L 33.2 L 28.6 L (36-47) % MCV 94.0 94.6 96.9 (85-98) fl Plt Count 226 213 190 (157-399) 10^3/cmm Neut % (Auto) 68.6 65.9 67.8 % Neut # (Auto) 6.47 6.82 7.48 (1.8-7.7) 10^3/uL BMP 02/08/25 02/09/25 02/10/25 20:40 05:11 05:06 Sodium 143 140 141 Potassium 4.3 3.9 3.6 Chloride 107 105 108 H Carbon Dioxide 26 26 25 BUN 18 17 19 Creatinine 0.9 0.8 0.8 Glucose 108 130 H 102 Calcium 9.2 8.8 8.2 L Liver Function 02/08/25 02/09/25 02/10/25 Range/Units 20:40 05:11 05:06 Total Bilirubin 0.3 0.5 0.7 (0.15-1.2) mg/dL AST 26 45 H 31 (0-32) U/L ALT 25 27 29 (0-33) U/L Alkaline Phosphatase 115 H 120 H 102 (35-105) U/L Albumin 3.9 3.9 3.4 L (3.5-5.2) g/dL Urine 02/09/25 Range/Units 04:50 Urine Color Dark yellow A (Yellow) Urine Appearance Clear (CLEAR) Urine pH 5.5 (5-7) Ur Specific [place] 1.025 (1.005-1.030) Urine Protein Negative (Negative) Urine Glucose (UA) Negative (Normal) Urine Ketones Negative (Negative) Urine Nitrate Negative (Negative) Urine Bilirubin Negative (Negative) Ur Leukocyte Esterase Negative (Negative) Urine RBC 0-2 (0-2) /hpf Urine WBC 0-5 (0-5) /hpf Coags 02/08/25 20:40 PT 12.50 INR 0.87 Anesthesia Procedures Nerve Block Nerve Block 1: Main Anesthesia: general anesthesia Time Out Performed: Yes Consent: requested by attending/covering physician, from patient, from other, risks and benefits reviewed and patient agrees to proceed Nerve block location: adductor canal (R) Anesthesia monitors applied: pulse oximetry, EKG, BP cuff and oxygen Nerve block position: supine Anesthetic Used: ropivicaine 0.5% (30 ml) and with decadron (4 mg) Ultrasound used to: recognize landmarks and visualize and ID femerol nerve Nerve Stimulator Used?: No Interscalene/Femoral BLK: 4 stimuplex 21 g needle used for position and inplane approach, visualize local anesthetic spread and no vascular puncture identified Injection: neg aspiration of heme Patient Tolerated Procedure: well Complications: none
[2025-02-10] MEDS: ceFAZolin 2,000 mg SDV 2000 MG IVP ×2 (13:19→20:47)
--- NOTE | 2025-02-10 15:27 | XR_ITS ---
WS: [id number] Exam: XR knee LT 1-2V [id number] Date/Time of Exam: 02/10/2025 3:28 PM Reason For Exam: or pics Intraoperative AP and lateral C-arm images are submitted. There is lateral plate and screw fixation involving a comminuted fracture of the tibial plateaus. Postop changes in the soft tissues. Nondisplaced fibular head fracture also noted.
--- NOTE | 2025-02-10 16:49 | PC.NURSE ---
Pt took to the floor bp 118/77 95\5 sat r 14 87 pulse pt resting
[2025-02-10] MEDS: mupirocin oint 22 gm 1 APPLIC NASAL (17:34)
[2025-02-10] MEDS: sennosides-docusate Tablet 2 TAB PO (17:35)
[2025-02-10] MEDS: chlorhexidine gluconate 0.12% Btl 473 mL 30 ML MUCOUS MEM ×2 (17:35→20:47)
[2025-02-11] VITALS (8 sets, daily range): BP systolic 91–137; BP diastolic 51–86; PULSE 86–111; RESP 16–22; TEMP 36.9–37.4; O2SAT 91–95
[2025-02-11] MEDS: HYDROmorphone 0.5 MG/0.5 ML INJ 1 MG IVP (01:35)
[2025-02-11] MEDS: ceFAZolin 2,000 mg SDV 2000 MG IVP ×2 (05:05→13:09)
[2025-02-11 05:21] LABS: Hematocrit 24.2 % (36-47); Hemoglobin 7.60 g/dL (11.27-16.99); Mean Corpuscular HGB Conc 31.4 g/dL (30-55); Mean Corpuscular Hemoglobin 29.8 pg (27-33); Mean Corpuscular Volume 94.9 fl (85-98); Nucleated Red Blood Cells % 0 %; Platelet Count 176 10^3/cmm (157-399); Red Blood Count 2.55 10^6/uL (3.85-5.65); White Blood Count 12.70 10^3/uL (3.29-11.43)
[2025-02-11 05:39] LABS: Alanine Aminotransferase 36 U/L (0-33); Albumin Level 3.2 g/dL (3.5-5.2); Alkaline Phosphatase 96 U/L (35-105); Anion Gap 17.2 (5-19); Aspartate Amino Transferase 35 U/L (0-32); Blood Urea Nitrogen 22 mg/dL (6-20); Calcium 8.5 mg/dL (8.5-10.5); Carbon Dioxide 22 mmol/L (22-29); Chloride 111 mmol/L (98-107); Creatinine Clr Calc Pharmacy 80.3273; Globulin 2.3 g/dL (1.3-4.6); Glucose 146 mg/dL (65-115); Osmolality Calculated 308 mOsm/kg (285-295); Potassium 4.2 mmol/L (3.5-5.1); Sodium 146 mmol/L (136-145); Total Protein 5.5 g/dL (6.6-8.7)
[2025-02-11] MEDS: multivitamin therapeutic Tablet 1 TAB PO (09:10)
[2025-02-11] MEDS: sennosides-docusate Tablet 2 TAB PO ×2 (09:10→17:21)
--- NOTE | 2025-02-11 10:19 | P.OP_ITS ---
Operative Report Date of procedure: February 11, 2025 Surgeon: Javier Powell MD Procedure: Preoperative diagnosis: Left tibial plateau fracture Postoperative diagnosis: Same Procedure: Open reduction with internal fixation of left tibial plateau fracture Surgeon: Javier Powell MD [employer] Barrier Attendant: MAGAN Min's assistance was necessary for positioning of the patient, assistance during the procedure, wound closure, dressing placement and brace placement, transfer the patient to recovery room Anesthesia: General EBL: 225 cc Tourniquet time: 68 minutes at 250 mmHg Indication: Elaine is a 59-year-old white female with a known history of rheumatoid arthritis. In the last couple days she was going down a set of stairs stumbled and fell landing directly on her left knee. She was pain swelling inability to bear weight. She was seen at [facility] emergency room and x-rays there demonstrated a comminuted left tibial plateau fracture. Lateral plateau was quite comminuted and depressed. Medial plateau fracture is a single large fragment off the posterior aspect of the tibia. Patient is admitted through the hospitalist service. Orthopedic consultation was obtained. After initial evaluation and review of the patient as well as the x-rays and CT scan of her knee it was felt the patient would most benefit from open reduction internal fixation of the left tibial plateau fracture. All risk benefits t reatment alternatives were discussed with she and her spouse and they are agreeable to this at this time. Procedure: After obtaining written consent patient had nerve block to the left lower extremity for postoperative pain management postoperatively. Patient was then taken to the operating room placed in the op table supine position general anesthetic administered. Once good anesthesia was achieved pneumatic cuffs placed on proximal left thigh and left leg was prepped and draped usual fashion. After surgical timeout and gravity exsanguination the pneumatic cuff inflated 2 and 50 mmHg. Knee was placed over a radiolucent triangle to flex the knee. Longitudinal incision made from just inferior to the tibial tuberosity all the way up to the superior pole the patella. Sharp dissecting all way down to subcutaneous tissue electrocautery used for hemostasis. Dissection was taken both medially and laterally exposing the proximal tibia on either side. Small window was made through the capsule with electrocautery to view the posterior aspect of the lateral tibial plateau. Small window was made through the fascia to observe the posterior aspect of the medial tibia. And by digital palpation was felt that the fracture was fairly well reduced. At this point to 4.0 cannulated screws were placed anterior to posterior on the medial aspect of the tibia into the posterior fragment to hold it in place so as not to separate during reduction of the lateral side. A small bone window was made over the anterior medial tibia below the level of the tibial tubercle. Cortical bone window was saved for later use. At this point using bone punch this is driven on up into the posterior lateral aspect of the tibial plateau forcing the articular surfaces back up into position. This void was then filled with cancellous bone chips and impacted again with a bone tamp. There is discontinued on until adequate reduction of the posterior lateral corner of the tibial plateau was achieved. Subsequently at this time a lateral tibial plateau plate was fashioned along the lateral side of the tibia and confirmed under fluoroscopic evaluation. This was then pinned with a K wire to hold in place. Also bone clamp was used to hold it in place. In a stepwise fashion 3 locking screws were placed across the superior portion of this plate just underneath the tibial plateau surface and confirmed under fluoroscopic evaluation on both AP and lateral views. Another diagonal nonlocking screw was placed from the flare of the lateral tibial plateau angling superiorly and medially through the cortex of the medial tibia. Subsequently 3 bicortical screws were placed on the distal part of this plate. Interoperative fluoroscopy demonstrated adequate reduction and good fixation of the fractures. Wound was washed with copious amounts sterile irrigation. Deep fascia was repaired with 0 Vicryl [id number] sutures. At this point pneumatic cuff is deflated after 68 minutes total tourniquet time. Subcutaneous tissue reapproximated 0 Vicryl interrupted sutures and skin was closed with skin tj. Wounds are cleaned and dry dressed with Xeroform gauze, sterile gauze dressing, ABDs and Curlex wrap. Patient then had an Kalyan wrap applied to her whole lower extremity. Hinged knee brace was applied and locked out to full extension. Patient was then awakened transferred recovery in stable condition
[2025-02-11] MEDS: mupirocin oint 22 gm 1 APPLIC NASAL ×2 (10:21→17:25)
[2025-02-11] MEDS: chlorhexidine gluconate 0.12% Btl 473 mL 30 ML MUCOUS MEM ×4 (10:21→20:24)
[2025-02-11] MEDS: oxyCODONE-APAP 5-325 mg Tablet 1 TAB PO ×3 (10:23→18:32)
--- NOTE | 2025-02-11 10:28 | P.PN_ITS ---
Subjective 2 Subjective: Patient underwent open reduction internal fixation of left tibial plateau fracture yesterday afternoon. She has tolerated this well. She is up to a chair today and states she is has no pain but still feels like the nerve block is working. She would like to go home today. It was noted that her hemoglobin was down to 7.6 but blood pressure and heart rate were good. She appears to be neurovasc intact in her distal digits of her left lower extremity. The dressings are clear today. No other gross abnormalities. Vitals/I&O/Wt Last Vital Signs Temp 98.4 F 02/11/25 00:00 Pulse 86 02/11/25 07:30 Resp 18 02/11/25 10:23 BP 91/51 02/11/25 07:30 Pulse Ox 95 02/11/25 07:30 O2 Del Method Room Air 02/11/25 07:30 O2 Flow Rate 2 02/10/25 16:27 02/10/25 02/11/25 02/11/25 22:59 06:59 14:59 Intake Total 1196.5 / 1196.5 500 / 1696.5 240 / 240 Output Total 770 / 1070 300 / 1370 Balance 426.5 / 126.5 200 / 326.5 240 / 240 Weight last 48 hrs Weight 207 lb 12.8 oz Weight 198 lb 4 oz Weight 200 lb 5 oz Physical Exam 2 Narrative: Patient up to a chair with left leg elevated on the other chair. She has her hinged knee brace unlocked to full extension. Dressings are clear. Neurovascular tact distally. Urinary Catheter Management: Justin: Cath Placed During This Visit: yes, but has since been removed by the nurse Reason for Continuing Indwelling Catheter: Perioperative Use in Selected Surgeries Urinary Catheter Date of Insertion: 02/09/25 Urinary Catheter Time of Insertion: 04:50 Date Urinary Catheter Removed: 02/11/25 Time Urinary Catheter Discontinued: 05:40 Data 02/11/25 04:46 02/11/25 04:46 A&P Assessment and plan 1. Closed fracture of left tibial plateau with routine healing, subsequent encounter: Patient tolerated open reduction internal fixation of left tibial plateau fracture well. Pain is under good control. Plan: Plan at this time is to go ahead and allow her to be discharged home if the hospitalist clears her. I have pointed out to her that she has had a drop in her hemoglobin however her vital signs do appear to be within normal limits. Therefore, at this time she could be discharged home. She is to remain nonweightbearing on the left side with walker crutch ambulation. She may change out her dressings in 4 days. She must cover her wounds to shower. She should use a shower chair when bathing herself. Redressed with just dry gauze and tape or the Kalyan wrap. Follow-up in my office in the next 2 weeks for wound check and advancement of activities PDMP PDMP Reviewed: Not Reviewed Attestations 2 Medical Necessity Statement*: From orthopedic standpoint patient could be discharged home at this time if pain is under control with oral pain medication Coding Level of Care Code Critical Care >/= 30 minutes Diagnoses Closed fracture of left tibial plateau with routine healing, subsequent encounter S82.142D Encounter type: subsequent encounter Fracture type: closed Fracture healing: with routine healing
--- NOTE | 2025-02-11 11:15 | P.PN_ITS ---
Subjective 2 Subjective: Patient underwent open reduction internal fixation of left tibial plateau fracture yesterday afternoon with the orthopedics . She has tolerated this well. She is up to a chair today and states she is has no pain but still feels like the nerve block is working. She would like to go home today. It was noted that her hemoglobin was down to 7.6 but blood pressure and heart rate were good. she has good blood supply to her legs, no abd tenderness or any hematoma near the flank region continue to monitor Vitals/I&O/Wt Last Vital Signs Temp 98.4 F 02/11/25 00:00 Pulse 86 02/11/25 07:30 Resp 18 02/11/25 10:23 BP 91/51 02/11/25 07:30 Pulse Ox 95 02/11/25 07:30 O2 Del Method Room Air 02/11/25 07:30 O2 Flow Rate 2 02/10/25 16:27 02/10/25 02/11/25 02/11/25 22:59 06:59 14:59 Intake Total 1196.5 / 1196.5 500 / 1696.5 240 / 240 Output Total 770 / 1070 300 / 1370 Balance 426.5 / 126.5 200 / 326.5 240 / 240 Weight last 48 hrs Weight 94.256 kg Weight 89.925 kg Physical Exam 2 Narrative: General: Alert oriented x3, lying comfortably on the bed. s/p surgery doing well, on room air HEENT: Normocephalic, atraumatic, EOMI, breathing at room air Cardio: Regular rate rhythm, normal S1-S2, no murmurs rubs gallops, JVD normal Respiratory: Good bilateral air entry, no wheezes no rhonchi appreciated GI: Abdomen soft, nontender, nondistended, normoactive bowel sounds present all 4 quadrants, Neuro: Cranial nerves II to XII intact, strength 5/5, sensation 5/5, no gross neurological deficit Behavior: Appropriate and cooperative Extremities: Having left leg pain stabilized with support s/p surgery Skin: Unremarkable exam Urinary Catheter Management: Justin: Cath Placed During This Visit: yes, but has since been removed by the nurse Reason for Continuing Indwelling Catheter: Perioperative Use in Selected Surgeries Urinary Catheter Date of Insertion: 02/09/25 Urinary Catheter Time of Insertion: 04:50 Date Urinary Catheter Removed: 02/11/25 Time Urinary Catheter Discontinued: 05:40 Data 02/11/25 04:46 02/11/25 04:46 A&P Assessment and plan 1. Closed fibular fracture: 2. Fall: 3. Rheumatoid arthritis: 4. H/O gastric sleeve: 5. Closed fracture of left tibial plateau with routine healing, subsequent encounter: 6. Anemia: Plan: Fall with intra-articular fracture of the left proximal tibia from a fall, likely underlying osteoporosis considering she is on steroids and s/p surgery and repair, aspirin 325mg daily - acute drop in hb, anemia work up to send, no obvious source of bleeding, iron infusion and to follow cbc - adequate analgesia as per pain scale - OT/PT eval and rehab - She is on chronic prednisone 5 mg p.o. daily from the last 2 to 3 years, provided 50 mg hydrocortisone as a stress dose as per the guidelines and based on cortisol range, before surgery and will continue with 25 mg hydrocortisone every 8 hourly for 24 hours postsurgery to avoid any adrenal crisis. -Continue her home dose of prednisone - mild increased in WBCs and to monitor, likely due to steroids - mild increase in liver enzymes, no abd tenderness, continue to monitor - Full code - VTE prophylaxis; SCD at the moment, and aspirin as per ortho, since hb is low, and need to rule out any bleeding, CT abd pelvis with contrast to rule out any intra peritoneal bleed - Diet; regular diet PDMP PDMP Reviewed: Not Reviewed Attestations 2 Medical Necessity Statement*: The patient will stay in the hospital for management of left proximal tibial fracture from fall s/p surgery, drop in hb acutely Time Spent in Patient Care: 16 - 35 minutes (>than 50% of time sp ent in counselling and/or direct pt care on unit) . Other Attestations: Patient condition has been discussed at length with the patient/family, I have independently reviewed the chart labs imaging and diagnostics and EKG. the goals of care and code status with the patient/family/NOK/legal auto service representative, and documented accordingly. The patient/family has been informed about the current condition and further plan of care. Agreed with the plan of care and understood without any language barrier. This documentation was created by [employer] piano and organ refinisher software. Every effort was made to ensure accuracy of piano and organ refinisher. Any obvious errors or omissions should be clarified with the author of the document. Coding Level of Care Code 79456 Diagnoses Closed fibular fracture S82.409A Fall W19.XXXA Rheumatoid arthritis M06.9 H/O gastric sleeve Z90.3 Closed fracture of left tibial plateau with routine healing, subsequent encounter S82.142D Encounter type: subsequent encounter Fracture healing: with routine healing Fracture type: closed Anemia D64.9
--- NOTE | 2025-02-11 11:35 | CTR_ITS ---
PROCEDURE INFORMATION: Exam: CT Abdomen And Pelvis With Contrast Exam date and time: 02/11/2025 1:26 PM Age: 59 years old Clinical indication: Other: Drop in hb and to rule out any intraperitoneal bleed post op TECHNIQUE: Imaging protocol: Computed tomography of the abdomen and pelvis with contrast. Radiation optimization: All CT scans at this facility use at least one of these dose optimization techniques: automated exposure control; mA and/or kV adjustment per patient size (includes targeted exams where dose is matched to clinical indication); or iterative reconstruction. Contrast material: OMNI 350; Contrast volume: 100 ml; Contrast route: INTRAVENOUS (IV); COMPARISON: CT abdomen pelvis wo con [id number] 09/14/2024 8:12 AM RADIATION DOSE METRICS: Total DLP (mGy-cm): 961.42 FINDINGS: Lungs: No infiltrate or effusion is seen within the visualized lung bases. Liver: Liver appears unremarkable. Gallbladder and biliary ducts: Previous cholecystectomy with mild prominence of central intrahepatic ducts and extrahepatic common hepatic/bile duct. Findings are similar to prior noncontrast exam of 09/14/2024 and may reflect post cholecystectomy state. Correlate with serum bilirubin and liver function studies otherwise. Pancreas: Normal. No ductal dilation. Spleen: Normal. No splenomegaly. Adrenal glands: Bilateral adrenal prominence with nodular areas, largest nodule left adrenal gland inferiorly of approximately 2.2 cm. Findings appear stable with previous noncontrast exam. Kidneys and ureters: A very small low-density focus is seen from the lower pole cortex of the left kidney. This appears stable with prior noncontrast exam. An 8 mm rounded hypodense focus is seen anterior mid to upper pole cortex of the right kidney with fluid density measurements suggesting small renal cyst. No urinary tract stone or obstructive uropathy or perinephric stranding. Stomach and bowel: Postsurgical change of the stomach. Gastric contents within a mildly distended stomach. No significant small bowel dilatation or obstruction. Gas and stool is seen throughout the colon with moderate stool volume. No significant bowel thickening. No pericolonic mesenteric stranding. Appendix: The appendix is visualized. No evidence of appendicitis. Intraperitoneal space: No free fluid or ascites or fluid collection is seen. No findings to indicate intraperitoneal bleed. No free air. Vasculature: Mild atherosclerotic calcification of the abdominal aorta and iliac arteries without abdominal aortic aneurysm. Pelvic phleboliths noted. Lymph nodes: No significant lymph node enlargement or lymphadenopathy. Urinary bladder: Urinary bladder is not well distended and otherwise unremarkable. Reproductive: Previous hysterectomy. Bones/joints: Bone windows show no acute osseous abnormality. Mild scattered degenerative change of the spine. Soft tissues: Unremarkable. CT/CT abdomen pelvis w con* [id number] IMPRESSION: 1. Previous cholecystectomy with mild biliary ductal prominence post cholecystectomy without significant change from previous noncontrast exam. 2. Previous hysterectomy. 3. Postsurgical change of the stomach. Gastric contents within a mildly distended stomach. 4. Moderate stool volume in the colon. 5. Bilateral adrenal nodularity without significant change from previous noncontrast exam. 6. Small subcentimeter low-density focus of the cortex of both kidneys, without significant change with prior exam and likely small cysts. 7. No findings to indicate intra-abdominal or intrapelvic bleed or hematoma. COMMENTS: Consistent with the [employer]'s Incidental Findings Committee white paper (J Am Boy [employer]iol 2018): Any incidental renal lesion less than 1 cm or classified as too small to characterize, or any incidental cystic renal lesion characterized as simple-appearing, is likely benign. No follow-up imaging is recommended for these lesions per consensus recommendations based on imaging criteria.
[2025-02-11] MEDS: hydrocortisone 100 mg/2 mL SDV 25 MG IVP ×2 (11:40→18:33)
[2025-02-11 12:01] LABS: Ferritin 50 ng/mL (15-150); Iron 31 ug/dL (37-145); Total Iron Binding Capacity 294 mcg/dl; Unsaturated Iron Binding 263 ug/dL (112-347)
[2025-02-11 12:17] LABS: Vitamin B12 200 pg/mL (232-1245)
[2025-02-11 13:24] LABS: Hematocrit 24.2 % (36-47); Hemoglobin 7.70 g/dL (11.27-16.99); Mean Corpuscular HGB Conc 31.8 g/dL (30-55); Mean Corpuscular Hemoglobin 30.3 pg (27-33); Mean Corpuscular Volume 95.3 fl (85-98); Nucleated Red Blood Cells % 0 %; Platelet Count 170 10^3/cmm (157-399); Red Blood Count 2.54 10^6/uL (3.85-5.65); White Blood Count 11.75 10^3/uL (3.29-11.43)
[2025-02-11] MEDS: iohexol 350 mg/mL 500 mL Btl (per mL) IV (13:33)
[2025-02-12] VITALS (8 sets, daily range): BP systolic 113–116; BP diastolic 57–70; PULSE 81–102; RESP 15–18; TEMP 36.8–37; O2SAT 93–97
[2025-02-12] MEDS: oxyCODONE-APAP 5-325 mg Tablet 1 TAB PO ×3 (03:18→12:29)
[2025-02-12] MEDS: hydrocortisone 100 mg/2 mL SDV 25 MG IVP ×2 (03:18→12:05)
[2025-02-12] MEDS: HYDROmorphone 0.5 MG/0.5 ML INJ 1 MG IVP (04:14)
[2025-02-12 04:46] LABS: Hematocrit 23.6 % (36-47); Hemoglobin 7.40 g/dL (11.27-16.99); Mean Corpuscular HGB Conc 31.4 g/dL (30-55); Mean Corpuscular Hemoglobin 30.6 pg (27-33); Mean Corpuscular Volume 97.5 fl (85-98); Nucleated Red Blood Cells % 0 %; Platelet Count 185 10^3/cmm (157-399); Red Blood Count 2.42 10^6/uL (3.85-5.65); White Blood Count 9.59 10^3/uL (3.29-11.43)
[2025-02-12 05:00] LABS: Alanine Aminotransferase 28 U/L (0-33); Albumin Level 3.2 g/dL (3.5-5.2); Alkaline Phosphatase 110 U/L (35-105); Aspartate Amino Transferase 33 U/L (0-32); Blood Urea Nitrogen 19 mg/dL (6-20); Calcium 8.4 mg/dL (8.5-10.5); Carbon Dioxide 24 mmol/L (22-29); Chloride 113 mmol/L (98-107); Creatinine Clr Calc Pharmacy 91.8026; Globulin 2.5 g/dL (1.3-4.6); Glucose 169 mg/dL (65-115); Osmolality Calculated 310 mOsm/kg (285-295); Sodium 147 mmol/L (136-145); Total Protein 5.7 g/dL (6.6-8.7)
[2025-02-12 05:07] LABS: Anion Gap 13.4 (5-19); Potassium 3.4 mmol/L (3.5-5.1)
[2025-02-12] MEDS: sennosides-docusate Tablet 2 TAB PO (08:09)
[2025-02-12] MEDS: multivitamin therapeutic Tablet 1 TAB PO (08:10)
[2025-02-12] MEDS: mupirocin oint 22 gm 1 APPLIC NASAL (08:15)
[2025-02-12] MEDS: chlorhexidine gluconate 0.12% Btl 473 mL 30 ML MUCOUS MEM ×2 (08:15→12:05)
--- NOTE | 2025-02-12 13:00 | P.DS_ITS ---
Discharge Providers Date of Admission: 02/08/25 20:05 Date of Discharge: February 12, 2025 Attending Provider at Admission: Lyndon Badillo MD Attending Provider at Discharge: Desiree Anglin MD Primary Care Provider: Daphnie Green MD Diagnoses at Discharge Discharge Diagnosis 1. Closed fibular fracture: 2. Fall: 3. Rheumatoid arthritis: 4. H/O gastric sleeve: 5. Closed fracture of left tibial plateau with routine healing, subsequent encounter: 6. Anemia: 7. B12 deficiency: Reason for Visit Reason for Visit: Fall Brief History: Elaine Rinaldi is a 59 year old female with a past medical history of rheumatoid arthritis, on chronic prednisone, methotrexate, who presents [facility] for a follow-up. Patient tells me that she was climbing down the stairs, there is for steps, she thinks that she twisted the wrong way and fell down the stairs hitting her left knee. She denies any significant head trauma, loss of consciousness, no nausea, no vomiting, no chest pain, no stroke like symptoms, seizure-like symptoms. Hospital Course Hospital Course X-rays demonstrated a tibial plateau fracture primarily on the lateral side. After contacting with ortho, requested a CT scan to evaluate the fracture, and this was found to show a large fragment of the medial posterior plateau of the tibia that was displaced and comminution and collapse of the lateral tibial plateau posteriorly. The patient underwent Open reduction internal fixation of the left tibial plateau fracture on 02/10/2025. The patient has been stable. During her course of stay she received stress dose steroids pre and postsurgery with evaluation through cortisol level as well. The hospital course was uncomplicated. However it was noted that hemoglobin dropped was up to 7.6 however he did not drop less than 7. Hemodynamically the patient was stable. Repeat CBC did not show further significant drop. Hemoglobin drop could be secondary to postsurgery, anemia of chronic disease and other lab causes. The patient was asymptomatic. CT abdomen pelvis with contrast did not show any signs of bleeding. Her electrolytes and renal function were monitored and corrected accordingly. Anemia workup showed low vitamin B12 and to be discharged on vitamin B12 supplementation and to follow-up with the primary care doctor After establishing her stability the patient to be discharged at home with her home medications and to follow-up with orthopedics in 2 weeks. To do CBC and BMP in 2 to 3 days postdischarge and follow-up with the primary care doctor The patient has been informed about current medical condition, plan of care du ring her hospital oxygen postdischarge without any language barrier. All the risk and benefits were consulted and discussed with the patient. She agreed with the plan of care Physical Exam Narrative: General: Alert oriented x3, lying comfortably on the bed. s/p surgery doing well, on room air HEENT: Normocephalic, atraumatic, EOMI, breathing at room air Cardio: Regular rate rhythm, normal S1-S2, no murmurs rubs gallops, JVD normal Respiratory: Good bilateral air entry, no wheezes no rhonchi appreciated GI: Abdomen soft, nontender, nondistended, normoactive bowel sounds present all 4 quadrants, Neuro: Cranial nerves II to XII intact, strength 5/5, sensation 5/5, no gross neurological deficit Behavior: Appropriate and cooperative Extremities: Having left leg pain stabilized with support s/p surgery Skin: Unremarkable exam Urinary Catheter Management: Justin: Cath Placed During This Visit: yes, but has since been removed by the nurse Reason for Continuing Indwelling Catheter: Perioperative Use in Selected Surgeries Urinary Catheter Date of Insertion: 02/09/25 Urinary Catheter Time of Insertion: 04:50 Date Urinary Catheter Removed: 02/11/25 Time Urinary Catheter Discontinued: 05:40 Discharge Data Studies Completed and Pending Completed Studies During Hospitalization Category Date Time Status CT abdomen pelvis w con* [id number] Stat Cat Scan 02/11/25 11:[address] head wo con* [id number] Routine Cat Scan 02/08/25 22:[address] knee LT wo con* [id number] Stat Cat Scan 02/08/25 20:00 Completed XR ankle LT min 3V* [id number] Stat Exams 02/08/25 19:01 Completed XR knee LT 3V* [id number] Stat Exams 02/08/25 18:43 Completed XR tibia fibula LT 2V [id number] Stat Exams 02/08/25 18:43 Completed Pending at discharge Category Date Time Status C-arm Fluoroscopy [id number] Routine Exams 02/10/25 12:44 Taken XR knee LT 1-2V [id number] Routine Exams 02/10/25 15:27 Taken Complete Blood Count w/Auto AM LABS Lab 02/13/25 04:00 Ordered Radiology Impressions Tibia/Fibula X-Ray 02/08/25 18:43 IMPRESSION: 1. Lateral tibial plateau fracture. 2. Proximal fibular fracture. 3. Lipohemarthrosis at the knee. Ankle X-Ray 02/08/25 19:01 IMPRESSION: No acute fracture. Knee CT 02/08/25 20:00 IMPRESSION: 1. Intra-articular fracture of the proximal tibia involving the medial and lateral tibial plateau and tibial eminence as above. 2. Comminuted nondisplaced proximal fibular fracture. 3. Lipohemarthrosis. Head CT 02/08/25 22:16 IMPRESSION: No acute intracranial abnormality. Chronic microvascular ischemic changes. Abdomen/Pelvis CT 02/11/25 11:35 IMPRESSION: 1. Previous cholecystectomy with mild biliary ductal prominence post cholecystectomy without significant change from previous noncontrast exam. 2. Previous hysterectomy. 3. Postsurgical change of the stomach. Gastric contents within a mildly distended stomach. 4. Moderate stool volume in the colon. 5. Bilateral adrenal nodularity without significant change from previous noncontrast exam. 6. Small subcentimeter low-density focus of the cortex of both kidneys, without significant change with prior exam and likely small cysts. 7. No findings to indicate intra-abdominal or intrapelvic bleed or hematoma. COMMENTS: Consistent with the [employer]'s Incidental Findings Committee white paper (J Am Boy Radiol 2018): Any incidental renal lesion less than 1 cm or classified as too small to characterize, or any incidental cystic renal lesion characterized as simple-appearing, is likely benign. No follow-up imaging is recommended for these lesions per consensus recommendations based on imaging criteria. Laboratory Results WBC 9.59 10^3/uL (3.29-11.43) 02/12/25 03:53 RBC 2.42 10^6/uL (3.85-5.65) L 02/12/25 03:53 Hgb 7.40 g/dL (11.27-16.99) L 02/12/25 03:53 Hct 23.6 % (36-47) L 02/12/25 03:53 MCV 97.5 fl (85-98) 02/12/25 03:53 MCH 30.6 pg (27-33) 02/12/25 03:53 MCHC 31.4 g/dL (30-55) 02/12/25 03:53 RDW 15.8 % (12.1-15.1) H 02/12/25 03:53 Plt Count 185 10^3/cmm (157-399) 02/12/25 03:53 MPV 10.4 fL (7.4-10.4) 02/12/25 03:53 Neut % (Auto) 71.9 % 02/12/25 03:53 Lymph % (Auto) 18.2 % 02/12/25 03:53 [place] % (Auto) 7.7 % 02/12/25 03:53 Eos % (Auto) 1.0 % 02/12/25 03:53 Baso % (Auto) 0.3 % 02/12/25 03:53 Neut # (Auto) 6.88 10^3/uL (1.8-7.7) 02/12/25 03:53 Lymph # (Auto) 1.8 10^3/uL (0.8-4.8) 02/12/25 03:53 [place] # (Auto) 0.7 10^3/uL (0.2-0.9) 02/12/25 03:53 Eos # (Auto) 0.1 10^3/uL (0.0-0.8) 02/12/25 03:53 Baso # (Auto) 0.0 10^3/uL (0.0-0.1) 02/12/25 03:53 Nucleated RBC % (auto) 0 % 02/12/25 03:53 Nucleated RBCs # 0.0 /100WBC 02/12/25 03:53 PT 12.50 SECONDS (12.1-14.9) 02/08/25 20:40 INR 0.87 (0.8-1.2) 02/08/25 20:40 Sodium 147 mmol/L (136-145) H 02/12/25 03:53 Potassium 3.4 mmol/L (3.5-5.1) L 02/12/25 03:53 Chloride 113 mmol/L (98-107) H 02/12/25 03:53 Carbon Dioxide 24 mmol/L (22-29) 02/12/25 03:53 Anion Gap 13.4 (5-19) 02/12/25 03:53 BUN 19 mg/dL (6-20) 02/12/25 03:53 Creatinine 0.7 mg/dL (0.5-0.9) 02/12/25 03:53 GFR Calculation 85.9 mL/min (90-130) L 02/12/25 03:53 Glucose 169 mg/dL (65-115) H 02/12/25 03:53 POC Glucose 154 mg/dL (70-110) H 02/11/25 20:46 Estimat Average Glucose 111 02/08/25 20:40 Hemoglobin A1c 5.5 % (4.0-6.0) 02/08/25 20:40 Calculated Osmolality 310 mOsm/kg (285-295) H 02/12/25 03:53 Calcium 8.4 mg/dL (8.5-10.5) L 02/12/25 03:53 Iron 31 ug/dL (37-145) L 02/11/25 04:46 TIBC 294 mcg/dl 02/11/25 04:46 % Saturation 10.5 % (20-50) L 02/11/25 04:46 Unsat Iron Binding 263 ug/dL (112-347) 02/11/25 04:46 Ferritin 50 ng/mL (15-150) 02/11/25 04:46 Total Bilirubin 0.2 mg/dL (0.15-1.2) 02/12/25 03:53 AST 33 U/L (0-32) H 02/12/25 03:53 ALT 28 U/L (0-33) 02/12/25 03:53 Alkaline Phosphatase 110 U/L (35-105) H 02/12/25 03:53 Total Protein 5.7 g/dL (6.6-8.7) L 02/12/25 03:53 Albumin 3.2 g/dL (3.5-5.2) L 02/12/25 03:53 Globulin 2.5 g/dL (1.3-4.6) 02/12/25 03:53 Triglycerides 141 mg/dL (0-150) 02/08/25 20:40 Cholesterol 184 mg/dL (0-200) 02/08/25 20:40 LDL Cholesterol, Calc 98 mg/dL (50-129) 02/08/25 20:40 HDL Cholesterol 58 mg/dL (60-100) L 02/08/25 20:40 LDL/HDL Ratio 1.69 RATIO (0.00-3.22) 02/08/25 20:40 Cholesterol/HDL Ratio 3.17 mg/dL (0.0-4.40) 02/08/25 20:40 Vitamin B12 200 pg/mL (232-1245) L 02/11/25 04:46 Folate 9.2 ng/mL (4.8-37.3) 02/11/25 04:46 Procalcitonin 0.04 ng/mL (0-0.5) 02/08/25 20:40 TSH 2.38 uIU/mL (0.27-4.20) 02/08/25 20:40 Random Cortisol 7.55 ug/dL (2.47-19.5) 02/10/25 05:06 Urine Color Dark yellow (Yellow) A 02/09/25 04:50 Urine Appearance Clear (CLEAR) 02/09/25 04:50 Urine pH 5.5 (5-7) 02/09/25 04:50 Ur Specific [place] 1.025 (1.005-1.030) 02/09/25 04:50 Urine Protein Negative (Negative) 02/09/25 04:50 Urine Glucose (UA) Negative (Normal) 02/09/25 04:50 Urine Ketones Negative (Negative) 02/09/25 04:50 Urine Blood Negative (Negative) 02/09/25 04:50 Urine Nitrate Negative (Negative) 02/09/25 04:50 Urine Bilirubin Negative (Negative) 02/09/25 04:50 Urine Urobilinogen 1.0 mg/dL (Negative) 02/09/25 04:50 Ur Leukocyte Esterase Negative (Negative) 02/09/25 04:50 Urine RBC 0-2 /hpf (0-2) 02/09/25 04:50 Urine WBC 0-5 /hpf (0-5) 02/09/25 04:50 Ur Squamous Epith Cells 0-5 /hpf (0-5) 02/09/25 04:50 Amorphous Sediment Not Reportable 02/09/25 04:50 Urine Bacteria None seen /hpf (NONE) 02/09/25 04:50 Hyaline Casts 2.46 /lpf 02/09/25 04:50 Vitals Last Vital Signs Temp 98.6 F 02/12/25 12:00 Pulse 102 H 02/12/25 12:00 Resp 18 02/12/25 12:29 BP 113/67 02/12/25 12:00 Pulse Ox 93 02/12/25 12:00 O2 Del Method Room Air 02/12/25 12:00 O2 Flow Rate 2 02/10/25 16:27 Discharge Plan Discharge Patient Disposition: Home Condition: Stable Prescriptions: New pantoprazole 40 mg Tablet,Delayed Release (Dr/Ec) 40 mg PO DAILY 60 Days Qty: 60 0RF aspirin 325 mg Tablet,Delayed Release (Dr/Ec) 325 mg PO DAILY 30 Days Qty: 30 0RF calcium carbonate 200 mg calcium (500 mg) Tablet,Chewable 1,000 mg PO BID 60 Days Qty: 600 0RF cholecalciferol (vitamin D3) 25 mcg (1,000 unit) Tablet 1,000 unit PO DAILY 60 Days Qty: 60 0RF polysaccharide iron complex [Ferrex 150] 150 mg iron Capsule 150 mg PO BIDWM 60 Days Qty: 60 0RF multivitamin with folic acid [Thera] 400 mcg Tablet 1 tab PO DAILY 60 Days Qty: 60 0RF acetaminophen 500 mg capsule 500 mg PO Q6H PRN (Reason: fever or pain) Qty: 30 0RF mecobalamin (vitamin B12) 1,000 mcg tablet,chewable 1,000 mcg PO DAILY Qty: 90 0RF Continued cyclobenzaprine 10 mg tablet 10 mg PO TID PRN (Reason: muscle spasm) Qty: 30 1RF folic acid 1 mg tablet 1 mg PO DAILY Qty: 90 1RF methotrexate sodium 2.5 mg tablet 2.5 mg PO .once weekly Qty: 74 1RF Rx Instructions: 7 tablets oral once week prednisone 5 mg tablet 5 mg PO DAILY Qty: 90 1RF Enbrel SureClick 50 mg/mL (1 mL) pen injector 50 mg SUBCUT .Q7days Qty: 4 5RF tramadol 50 mg tablet 50 mg PO Q6H PRN (Reason: pain) Qty: 120 0RF gabapentin 300 mg capsule 300 mg PO TID Qty: 90 1RF acyclovir 800 mg tablet 800 mg PO BID Qty: 180 1RF clonazepam 1 mg tablet 1 mg PO BID Qty: 60 3RF acyclovir [Zovirax] 5 % ointment 1 applic topical 6XD 7 Days Qty: 5 0RF bupropion HCl 150 mg tablet extended release 24 hr See Rx Instructions .ROUTE .COMPLEX Qty: 90 1RF Dose Instruction: TAKE 1 TABLET BY MOUTH IN THE MORNING Rx Instructions: TAKE 1 TABLET BY MOUTH IN THE MORNING atorvastatin 40 mg tablet See Rx Instructions .ROUTE .COMPLEX Qty: 90 1RF Dose Instruction: Take 1 tablet by mouth once daily Rx Instructions: Take 1 tablet by mouth once daily sertraline 100 mg tablet 100 mg PO DAILY Qty: 90 1RF Discontinued omeprazole 40 mg capsule,delayed release(DR/EC) 40 mg PO BID Qty: 180 1RF Crucible Packer OK for DC: Orthopedics Other Ambulatory Orders: DME: Walker (Order) Location: None Selected Ordered By: [employer] Basic Metabolic Panel (Routine) Timeframe: 3 Days Facility: [facility] - Location: Lab - Main Lab Ordered By: [employer] Complete Blood Count w/Auto (Routine) Timeframe: 3 Days Location: Determined by Patient Ordered By: Desiree Anglin Referrals: Javier Powell MD [Physician, Orthopedics] - 7-10 days Referral Note: FU in 2 weeks for post op FU Daphnie Green MD [Primary Care Provider, Family Practice] Discharge Diet: Advance as tolerated and Usual diet Discharge Activity: Limit activity as instructed and Use walker/crutches as instructed Patient Instructions: Acute Wound Care (DC), Opioid Safety, Post Anesthesia Care, Patient Portal & Merlin Instructions Discharge Attestations Time Spent in Discharge Care*: greater than 30 min Specific Discharge Activities: educating patient, educating and/or supporting family/caregiver, discussing with pcp/other providers, discussing with lead case manager/social workers/dc planners, documenting/other paperwork and evaluating patient/reviewing data Status at Discharge: Cognitive status at discharge: cognitively intact , Behavioral status at discharge: cooperative , Functional status at discharge: other assisted ambulation , Overall status at discharge: patient is back to baseline Quality Metrics Clinical Quality Measures [ No reported AMI, CVA or VTE this stay] Coding Level of Care Code 61660 Diagnoses Closed fibular fracture S82.409A Fall W19.XXXA Rheumatoid arthritis M06.9 H/O gastric sleeve Z90.3 Closed fracture of left tibial plateau with routine healing, subsequent encounter S82.142D Encounter type: subsequent encounter Fracture type: closed Fracture healing: with routine healing Anemia D64.9 B12 deficiency E53.8
== END 2025-02-12 16:00 | disposition home or self-care (01) | DRG 494 ==
LOC: ER 20:06 → MEDSURG 22:19 → ER IP 22:47 → MEDSURG 02-09 06:51
PROVIDERS: Orthopaedic Surgery; Admitting Provider Family Medicine; Emergency Provider Emergency Medicine; PCP Family Medicine; Visit Provider Student in an Organized Health Care Education/Training Program
DX: S82.142A Displaced bicondylar fracture of left tibia, initial encounter for closed fracture (principal); S82.455A Nondisplaced comminuted fracture of shaft of left fibula, initial encounter for closed fracture; W10.9XXA Fall (on) (from) unspecified stairs and steps, initial encounter; M06.00 Rheumatoid arthritis without rheumatoid factor, unspecified site; D64.9 Anemia, unspecified; E53.8 Deficiency of other specified B group vitamins; F17.210 Nicotine dependence, cigarettes, uncomplicated; F41.9 Anxiety disorder, unspecified; F32.9 Major depressive disorder, single episode, unspecified; E78.5 Hyperlipidemia, unspecified; K21.9 Gastro-esophageal reflux disease without esophagitis; Z98.84 Bariatric surgery status; Z79.52 Long term (current) use of systemic steroids; Z79.899 Other long term (current) drug therapy
CPT/HCPCS: 36415; 36416; 51702; 70450; 73560; 73562; 73590; 73610; 73700; 74177; 76000; 80053; 80061; 81001; 82533; 82607; 82728; 82746; 82962; 83036; 83540; 83550; 84145; 84443; 85025; 85610; 94664; 96372; 96374; 96375; 97116; 97161; 97166; 97530; 99285; C1713; C1734; J0131; J0330; J0690; J1100; J1171; J1650; J1720; J1885; J2250; J2270; J2405; J2470; J2704; J2795; J3010; J7030; J7050; J7512; J8499; J9999

== ENCOUNTER → 2025-02-28 14:08 | Outpatient (BNVA) | payer MEDICARE, SELFPAY | PROVIDERS: PCP Family Medicine; Visit Provider Orthopaedic Surgery | DX: S82.142D Displaced bicondylar fracture of left tibia, subsequent encounter for closed fracture with routine healing (principal); W10.9XXD Fall (on) (from) unspecified stairs and steps, subsequent encounter | CPT/HCPCS: 73590; 99024 ==

== ENCOUNTER → 2025-03-20 14:25 | Outpatient (BNVA) | payer MEDICARE, SELFPAY | PROVIDERS: PCP Family Medicine; Visit Provider Orthopaedic Surgery | DX: S82.142D Displaced bicondylar fracture of left tibia, subsequent encounter for closed fracture with routine healing (principal); X58.XXXD Exposure to other specified factors, subsequent encounter | CPT/HCPCS: 73590; 99024 ==

== ENCOUNTER → 2025-04-10 10:51 | Outpatient (BNVA) | payer MEDICARE, SELFPAY | PROVIDERS: PCP Family Medicine; Visit Provider Orthopaedic Surgery | DX: S82.142D Displaced bicondylar fracture of left tibia, subsequent encounter for closed fracture with routine healing (principal); X58.XXXD Exposure to other specified factors, subsequent encounter | CPT/HCPCS: 73590; 99024 ==

== ENCOUNTER → 2025-05-26 08:39 | Outpatient (BNVA) | payer MEDICARE, SELFPAY | PROVIDERS: PCP Family Medicine; Visit Provider Specialist | DX: S42.35 Comminuted fracture of shaft of humerus (principal); G89.29 Other chronic pain; M75.81 Other shoulder lesions, right shoulder; X58.XXXS Exposure to other specified factors, sequela | CPT/HCPCS: 20610; J1100; J2795; J3301; J9999 ==

== ENCOUNTER 2025-06-13 09:04 | Outpatient (RCR) | payer MEDICARE, SELFPAY | END 2025-06-21 23:59 | disposition home or self-care (01) | LOC: TPT 09:04 | PROVIDERS: PCP Family Medicine; Visit Provider Orthopaedic Surgery | DX: S82.102D Unspecified fracture of upper end of left tibia, subsequent encounter for closed fracture with routine healing (principal); X58.XXXD Exposure to other specified factors, subsequent encounter | CPT/HCPCS: 97161 ==